=== PATIENT | female | born 1950 | race Caucasian/White ===

== ENCOUNTER → 2018-03-01 | Outpatient (CLI) | payer MEDICARE, OTHER ==
[~2018-03-01] MED LIST: GADOBUTROL 7.5 MMOL/7.5 ML (GADAVIST) VIAL IV ONE
--- NOTE | 2018-03-01 14:19 | Diagnostic Imaging Report ---
EXAM: MRI thoracic spine without and with intravenous contrast. DATE: March 01, 2018. INDICATION: 68-year-old female, history of renal malignancy with bone metastasis. COMPARISON: Thoracic spine radiograph, May 05, 2017. PET CT March 01, 2018. CT chest, December 30, 2017. CT abdomen and pelvis, November 04, 2017. TECHNIQUE: Multiple pre and post contrast MRI sequences of the thoracic spine were obtained. FINDINGS: There is an avidly enhancing T1 hypointense mass involving the T10 vertebral body which is involving the right pedicle and posterior elements. The lesion extends to at least the midline and also includes soft tissue extension of the lesion. The lesion measures approximately 4.0 x 3.5 x 4.7 cm in size. This previously measured approximately 3.3 x 2.5 x 4.0 cm in size on comparison CT abdomen and pelvis of November 04, 2017. This has increased in size over time. The lesion appears to be extending into the right side of the epidural space. There is severe spinal stenosis at this level with psurp-bx-[id number] mass effect on the spinal cord. There is no identified abnormal signal within the spinal cord. There is enhancing marrow signal within the anterior half of the superior aspect of the T11 vertebral body without CT correlate on prior CT abdomen and pelvis of November 04, 2017. This is not definitely contiguous with the mass at the level of T11, although may potentially reflect a separate metastatic lesion. There is a benign vertebral body hemangioma of the superior aspect of the T4 vertebral body. There is ill-defined soft tissue edema and enhancement posterior to the level of the T10 lesion which likely relates to procedural-related changes. There is no well-demarcated drainable fluid collection. There is no identified abnormal signal within the visualized portions of the spinal cord. There is no additional level of spinal stenosis. There is a small posterior disc osteophyte at T7-T8. IMPRESSION: 1. Avidly enhancing mass involving the T10 vertebral body and right pedicle extending into the posterior elements as well as soft tissue extension including into the right epidural space with associated severe spinal stenosis. The lesion currently measures 4.0 x 3.5 x 4.7 cm in size which is an increase in size since comparison CT abdomen and pelvis of November 04, 2017, previously measuring 3.3 x 2.5 x 4.0 cm in size. Imaging appearance would be compatible with provided history of renal malignancy metastasis. 2. Abnormal enhancement within the anterior and superior aspect of the T11 vertebral body which may relate to an additional metastatic lesion. Dictated by: Dictated on workstation # [id number]
--- NOTE | 2018-03-01 14:27 | Diagnostic Imaging Report ---
INDICATION: Metastatic renal cell carcinoma. TECHNIQUE: Serum blood glucose level at the time of injection was 112 mg/dL. Patient was administered 13 mCi F-18 FDG intravenously, administered in the right forearm, and PET imaging was performed from the top of the skull to the mid thighs. In addition, noncontrast CT was performed for attenuation correction and anatomic correlation. COMPARISON: Correlation is made with outside CT from [facility] performed on 12/30/2017 and 11/04/2017 as well as current MRI of the thoracic spine performed 03/01/2018. No prior PET studies are available for comparison. FINDINGS: There is symmetric activity within the brain. Normal physiologic activity within the soft tissues of the neck are identified. There is an intense focus of activity in the right lobe of the thyroid gland with SUV max of approximately 7.2. This does correspond to a right thyroid nodule seen on CT. Imaging through the chest does show an area of efht-qz-abzneddw hypermetabolism in the mediastinum just posterior to the level of the taty. This area demonstrates SUV max of approximately 4.4. There is some soft tissue fullness at this location on CT and does correspond to a hyperdense lesion that has been present dating back to April 2017 on outside study. Etiology is indeterminate. No other mediastinal or pulmonary parenchymal abnormalities are seen. Physiologic activity throughout the abdomen and pelvis is noted. The right kidney is surgically absent. The known lytic destructive lesion in the lower thoracic spine at approximately T10 level demonstrates only very mild uptake with SUV of approximately 3.1. Low-level activity with an associated soft tissue mass at this level posterior to the thecal sac is also seen. This would be further characterized with MRI of the thoracic spine performed the same day. No other suspicious abnormalities are detected. IMPRESSION: 1. Intense focus of hypermetabolism in the right lobe of the thyroid. Correlation with thyroid ultrasound would be recommended. 2. Nonspecific mild uptake within the mediastinum which corresponds to a hyperdense mass at this location, which has been present on the prior outside CTs and appears to be fairly stable. 3. Low-level activity within the known lytic destructive lesion in the lower thoracic spine with associated extraosseous soft tissue mass. This will be further characterized on MRI of the thoracic spine with and without contrast performed the same day. Dictated by: Dictated on workstation # [id number]
== END ==
LOC: RAD 08:51
PROVIDERS: ATTEND Internal Medicine Hematology & Oncology
DX: C79.51 Secondary malignant neoplasm of bone (principal); C78.00 Secondary malignant neoplasm of unspecified lung; M48.04 Spinal stenosis, thoracic region; Z85.528 Personal history of other malignant neoplasm of kidney
CPT/HCPCS: 72157

== ENCOUNTER 2018-03-03 13:43 | Outpatient (RCR) | payer MEDICARE, OTHER ==
[2018-02-23 15:23] LABS: BASOPHILS % (AUTO) 1 % (0-10); EOSINOPHILS # (AUTO) 0.2 10^3/uL (0.0-0.3); EOSINOPHILS % (AUTO) 6 % (0-10); HEMATOCRIT 39 % (35-52); HEMOGLOBIN 13.6 G/DL (11.5-16.0); LYMPHOCYTES # (AUTO) 1.1 X 10^3 (1.0-4.0); LYMPHOCYTES % (AUTO) 27 % (12-44); MEAN CORPUSCULAR HEMOGLOBIN 31 PG (25-34); MEAN CORPUSCULAR HGB CONC 35 G/DL (32-36); MEAN CORPUSCULAR VOLUME 90 FL (80-99); MEAN PLATELET VOLUME 10.2 FL (7.4-10.4); MONOCYTES # (AUTO) 0.4 X 10^3 (0.0-1.0); MONOCYTES % (AUTO) 10 % (0-12); NEUTROPHILS # (AUTO) 2.2 X 10^3 (1.8-7.8); NEUTROPHILS % (AUTO) 56 % (42-75); PLATELET COUNT 209 10^3/uL (130-400); RED BLOOD COUNT 4.38 10^6/uL (4.35-5.85); RED CELL DISTRIBUTION WIDTH 17.1 % (10.0-14.5)
[2018-02-23 15:45] LABS: ALBUMIN 4.3 GM/DL (3.2-4.5); BILIRUBIN,TOTAL 0.8 MG/DL (0.1-1.0); CALCIUM 9.4 MG/DL (8.5-10.1); CREATININE SERUM 1.76 MG/DL (0.60-1.30); POTASSIUM 4.1 MMOL/L (3.6-5.0); TOTAL PROTEIN 7.7 GM/DL (6.4-8.2)
== END 2018-04-19 12:26 | disposition home or self-care (01) ==
LOC: ONC 13:43
PROVIDERS: ATTEND Internal Medicine Hematology & Oncology
DX: C79.51 Secondary malignant neoplasm of bone (principal); C78.00 Secondary malignant neoplasm of unspecified lung; Z85.528 Personal history of other malignant neoplasm of kidney; N18.9 Chronic kidney disease, unspecified
CPT/HCPCS: 36415; 80053; 85025; 99213; 99214

== ENCOUNTER → 2018-05-20 | Outpatient (CLI) | payer MEDICARE, OTHER ==
[2018-05-20] MEDS: NS 250 ML (IVPB) BAG IV ONE (11:43)
[2018-05-20] MEDS: IOHEXOL 350 MG/ML 100 ML (OMNIPAQUE 350) VIAL IV ONE (11:43)
--- NOTE | 2018-05-20 12:29 | Diagnostic Imaging Report ---
PROCEDURE: CT head with and without contrast. TECHNIQUE: Multiple contiguous axial images were obtained through the brain before and after the administration of intravenous contrast. INDICATION: History of renal cell carcinoma, unsteady gait. I have no previous for comparison. Pre-and post IV contrast enhanced CT head performed. There are no foci of abnormal parenchymal or meningeal enhancement with contrast. Normal enhancement of major dural venous sinuses is preserved. No findings of focal or generalized cerebral edema. No mass or mass effect. The ventricular system is nondilated and nondisplaced. The orbits, sinuses and calvarium unremarkable. No suspicious lytic lesion. IMPRESSION: Unremarkable pre-and postcontrast enhanced CT head. Dictated by: Dictated on workstation # [id number]
--- NOTE | 2018-05-20 18:40 | Diagnostic Imaging Report ---
PROCEDURE: CT thoracic and lumbar spine with contrast. TECHNIQUE: After uneventful intrathecal administration of contrast, axial images were obtained through the thoracic and lumbar spine. INDICATION: Metastatic disease, renal cell carcinoma to bone, spinal surgery for decompression. COMPARISON: Exam correlated with a preoperative MRI performed on 03/01/2018. FINDINGS: Axial thoracolumbar CT performed with sagittal and coronal reconstructions following the administration of intravenous contrast. There is transitional anatomy with 4 lumbar-type vertebral body segments and 12 paired ribs with the 12 ribs bilaterally diminutive. This is the same level assignment when correlated with the previous MRI and given that counting, there has been interval posterior fusion with bi-pedicular screws and vertical stabilization rods placed at the T8 T9, T11, and T12 levels with wide laminectomy at T9 and T10. Extensive scalloping, lytic changes, and erosive remodeling of the T10 vertebral body showed no appreciable interval change when the differing modalities are taken into account. This process is eccentric to the right and extends through its pedicle and lamina. Adjacent radiopacities may be embolic embolization coils. No hardware fracture or evidence for hardware loosening or migration. I cannot identify a CT-appreciable enhancing soft tissue mass on followup. However, this may be on modality-sensitivity basis as extensive intraosseous and extraosseous as well as intracanalicular soft tissue enhancing mass was present on the preoperative MRI. No bony foraminal encroachment. There do appear to be some lucencies and lytic changes to the left-sided T11 vertebral body anteriorly, also correlated with a marrow enhancing lesion present at earlier MRI. The remaining thoracic as well as the lumbar levels are unremarkable aside from transitional anatomy and some SI joint arthritis. No paravertebral mass, hemorrhage, or fluid collection. The solitary left kidney is unobstructed and the adrenals bilaterally appeared unremarkable. The incompletely visualized lungs revealed no identifiable mass or thoracic effusion. IMPRESSION: Interval T10 decompressive laminectomy and multilevel thoracolumbar posterior fusion aligned anatomically without hardware complication or new bony abnormality. No identifiable enhancing soft tissue mass on followup could be identified, however MRI may reveal residual soft tissue component obscured at CT. No findings to suggest an adverse development from prior. Dictated by: Dictated on workstation # [id number]
== END ==
LOC: RAD 10:49
PROVIDERS: ATTEND Internal Medicine Hematology & Oncology
DX: C79.51 Secondary malignant neoplasm of bone (principal); C64.1 Malignant neoplasm of right kidney, except renal pelvis; R26.81 Unsteadiness on feet; Z98.1 Arthrodesis status; Z98.890 Other specified postprocedural states
CPT/HCPCS: 70470; 72129; 72132

== ENCOUNTER 2018-06-01 12:54 | Outpatient (RCR) | payer MEDICARE, OTHER ==
[2018-04-19 12:46] LABS: BASOPHILS % (AUTO) 1 % (0-10); EOSINOPHILS # (AUTO) 0.1 10^3/uL (0.0-0.3); EOSINOPHILS % (AUTO) 3 % (0-10); HEMATOCRIT 31 % (35-52); HEMOGLOBIN 10.2 G/DL (11.5-16.0); LYMPHOCYTES # (AUTO) 0.9 X 10^3 (1.0-4.0); LYMPHOCYTES % (AUTO) 21 % (12-44); MEAN CORPUSCULAR HEMOGLOBIN 32 PG (25-34); MEAN CORPUSCULAR HGB CONC 33 G/DL (32-36); MEAN CORPUSCULAR VOLUME 99 FL (80-99); MEAN PLATELET VOLUME 9.3 FL (7.4-10.4); MONOCYTES # (AUTO) 0.5 X 10^3 (0.0-1.0); MONOCYTES % (AUTO) 11 % (0-12); NEUTROPHILS # (AUTO) 2.7 X 10^3 (1.8-7.8); NEUTROPHILS % (AUTO) 64 % (42-75); PLATELET COUNT 317 10^3/uL (130-400); RED BLOOD COUNT 3.14 10^6/uL (4.35-5.85); RED CELL DISTRIBUTION WIDTH 16.2 % (10.0-14.5); WHITE BLOOD COUNT 4.3 10^3/uL (4.3-11.0)
[2018-04-19 13:06] LABS: ALBUMIN 4.3 GM/DL (3.2-4.5); BILIRUBIN,TOTAL 0.5 MG/DL (0.1-1.0); CALCIUM 9.4 MG/DL (8.5-10.1); CREATININE SERUM 1.68 MG/DL (0.60-1.30); TOTAL PROTEIN 7.4 GM/DL (6.4-8.2)
[2018-05-17 13:51] LABS: BASOPHILS # (AUTO) 0.1 10^3/uL (0.0-0.1); BASOPHILS % (AUTO) 1 % (0-10); EOSINOPHILS # (AUTO) 0.1 10^3/uL (0.0-0.3); EOSINOPHILS % (AUTO) 1 % (0-10); HEMATOCRIT 33 % (35-52); HEMOGLOBIN 11.1 G/DL (11.5-16.0); LYMPHOCYTES # (AUTO) 0.9 X 10^3 (1.0-4.0); LYMPHOCYTES % (AUTO) 20 % (12-44); MEAN CORPUSCULAR HEMOGLOBIN 33 PG (25-34); MEAN CORPUSCULAR HGB CONC 33 G/DL (32-36); MEAN CORPUSCULAR VOLUME 99 FL (80-99); MEAN PLATELET VOLUME 9.3 FL (7.4-10.4); MONOCYTES # (AUTO) 0.3 X 10^3 (0.0-1.0); MONOCYTES % (AUTO) 6 % (0-12); NEUTROPHILS # (AUTO) 3.2 X 10^3 (1.8-7.8); NEUTROPHILS % (AUTO) 72 % (42-75); PLATELET COUNT 244 10^3/uL (130-400); RED BLOOD COUNT 3.38 10^6/uL (4.35-5.85); RED CELL DISTRIBUTION WIDTH 14.2 % (10.0-14.5); WHITE BLOOD COUNT 4.4 10^3/uL (4.3-11.0)
[2018-05-17 14:09] LABS: ALBUMIN 4.4 GM/DL (3.2-4.5); BILIRUBIN,TOTAL 0.5 MG/DL (0.1-1.0); CALCIUM 9.5 MG/DL (8.5-10.1); CREATININE SERUM 1.77 MG/DL (0.60-1.30); POTASSIUM 3.9 MMOL/L (3.6-5.0); TOTAL PROTEIN 7.5 GM/DL (6.4-8.2)
[~2018-06-01] VITALS: Ht 153.7 cm; Wt 76.2 kg
[~2018-06-01 12:54] MED LIST changes: -GADOBUTROL 7.5 MMOL/7.5 ML (GADAVIST) VIAL IV ONE; +NS IV 1000 ML (CANCER CTR) 1,000 ML ONE; +NS IV 500 ML (CANCER CENTER) 0 ML ONE; +PEMBROLIZUMAB 200 MG in NS (IVPB) CANCER CENTER 50 ML IV SCH
[2018-06-01] MEDS ORDERED: NS (IVPB) CANCER CENTER 250 ML IV SCH (13:00)
[2018-06-01] MEDS ORDERED: NS IV 500 ML (CANCER CENTER) 500 ML ONE (13:50)
[2018-06-22 13:29] LABS: BASOPHILS % (AUTO) 1 % (0-10); EOSINOPHILS # (AUTO) 0.1 10^3/uL (0.0-0.3); EOSINOPHILS % (AUTO) 2 % (0-10); HEMATOCRIT 35 % (35-52); HEMOGLOBIN 11.4 G/DL (11.5-16.0); LYMPHOCYTES # (AUTO) 0.9 X 10^3 (1.0-4.0); LYMPHOCYTES % (AUTO) 22 % (12-44); MEAN CORPUSCULAR HEMOGLOBIN 32 PG (25-34); MEAN CORPUSCULAR HGB CONC 32 G/DL (32-36); MEAN CORPUSCULAR VOLUME 100 FL (80-99); MEAN PLATELET VOLUME 9.9 FL (7.4-10.4); MONOCYTES # (AUTO) 0.4 X 10^3 (0.0-1.0); MONOCYTES % (AUTO) 11 % (0-12); NEUTROPHILS # (AUTO) 2.7 X 10^3 (1.8-7.8); NEUTROPHILS % (AUTO) 65 % (42-75); PLATELET COUNT 218 10^3/uL (130-400); RED BLOOD COUNT 3.52 10^6/uL (4.35-5.85); WHITE BLOOD COUNT 4.1 10^3/uL (4.3-11.0)
[2018-06-22 13:47] LABS: ALBUMIN 4.5 GM/DL (3.2-4.5); BILIRUBIN,TOTAL 0.7 MG/DL (0.1-1.0); CALCIUM 9.8 MG/DL (8.5-10.1); CREATININE SERUM 1.33 MG/DL (0.60-1.30); POTASSIUM 4.2 MMOL/L (3.6-5.0); TOTAL PROTEIN 7.8 GM/DL (6.4-8.2)
== END 2018-06-22 13:13 | disposition home or self-care (01) ==
LOC: ONC 12:54
PROVIDERS: ATTEND Internal Medicine Hematology & Oncology
DX: C79.51 Secondary malignant neoplasm of bone (principal); C78.00 Secondary malignant neoplasm of unspecified lung; Z85.528 Personal history of other malignant neoplasm of kidney; N18.9 Chronic kidney disease, unspecified
CPT/HCPCS: 36415; 80053; 85025; 96360; 96361; 96413; 99213

== ENCOUNTER 2018-08-23 13:51 | Outpatient (RCR) | payer MEDICARE, OTHER ==
[2018-07-12 13:57] LABS: BASOPHILS % (AUTO) 1 % (0-10); EOSINOPHILS # (AUTO) 0.1 10^3/uL (0.0-0.3); EOSINOPHILS % (AUTO) 2 % (0-10); HEMATOCRIT 39 % (35-52); LYMPHOCYTES # (AUTO) 0.8 X 10^3 (1.0-4.0); LYMPHOCYTES % (AUTO) 18 % (12-44); MEAN CORPUSCULAR HEMOGLOBIN 30 PG (25-34); MEAN CORPUSCULAR HGB CONC 31 G/DL (32-36); MEAN CORPUSCULAR VOLUME 98 FL (80-99); MEAN PLATELET VOLUME 10.6 FL (7.4-10.4); MONOCYTES # (AUTO) 0.5 X 10^3 (0.0-1.0); MONOCYTES % (AUTO) 11 % (0-12); NEUTROPHILS # (AUTO) 3.1 X 10^3 (1.8-7.8); NEUTROPHILS % (AUTO) 69 % (42-75); PLATELET COUNT 208 10^3/uL (130-400); RED BLOOD COUNT 3.95 10^6/uL (4.35-5.85); RED CELL DISTRIBUTION WIDTH 12.8 % (10.0-14.5); WHITE BLOOD COUNT 4.5 10^3/uL (4.3-11.0)
[2018-07-12 14:25] LABS: ALBUMIN 4.2 GM/DL (3.2-4.5); BILIRUBIN,TOTAL 0.6 MG/DL (0.1-1.0); CALCIUM 9.6 MG/DL (8.5-10.1); CREATININE SERUM 1.03 MG/DL (0.60-1.30); POTASSIUM 4.5 MMOL/L (3.6-5.0); TOTAL PROTEIN 7.2 GM/DL (6.4-8.2)
[2018-08-02 15:20] LABS: BASOPHILS # (AUTO) 0.1 10^3/uL (0.0-0.1); BASOPHILS % (AUTO) 2 % (0-10); EOSINOPHILS # (AUTO) 0.1 10^3/uL (0.0-0.3); EOSINOPHILS % (AUTO) 3 % (0-10); HEMATOCRIT 39 % (35-52); HEMOGLOBIN 12.5 G/DL (11.5-16.0); LYMPHOCYTES % (AUTO) 27 % (12-44); MEAN CORPUSCULAR HEMOGLOBIN 30 PG (25-34); MEAN CORPUSCULAR HGB CONC 32 G/DL (32-36); MEAN CORPUSCULAR VOLUME 93 FL (80-99); MEAN PLATELET VOLUME 10.5 FL (7.4-10.4); MONOCYTES # (AUTO) 0.4 X 10^3 (0.0-1.0); MONOCYTES % (AUTO) 12 % (0-12); NEUTROPHILS # (AUTO) 2.1 X 10^3 (1.8-7.8); NEUTROPHILS % (AUTO) 57 % (42-75); PLATELET COUNT 254 10^3/uL (130-400); RED BLOOD COUNT 4.16 10^6/uL (4.35-5.85); RED CELL DISTRIBUTION WIDTH 12.3 % (10.0-14.5); WHITE BLOOD COUNT 3.7 10^3/uL (4.3-11.0)
[2018-08-02 15:35] LABS: ALBUMIN 4.2 GM/DL (3.2-4.5); BILIRUBIN,TOTAL 0.6 MG/DL (0.1-1.0); CALCIUM 9.6 MG/DL (8.5-10.1); CREATININE SERUM 1.08 MG/DL (0.60-1.30); POTASSIUM 4.3 MMOL/L (3.6-5.0); TOTAL PROTEIN 7.2 GM/DL (6.4-8.2)
[~2018-08-23] VITALS: Ht 153.7 cm; Wt 68.9 kg
[~2018-08-23 13:51] MED LIST changes: +NS (IVPB) CANCER CENTER 250 ML IV SCH; -NS IV 1000 ML (CANCER CTR) 1,000 ML ONE; -NS IV 500 ML (CANCER CENTER) 0 ML ONE; +NS IV 500 ML (CANCER CENTER) 500 ML ONE
[2018-08-23 14:30] LABS: BASOPHILS # (AUTO) 0.1 10^3/uL (0.0-0.1); BASOPHILS % (AUTO) 1 % (0-10); EOSINOPHILS # (AUTO) 0.1 10^3/uL (0.0-0.3); EOSINOPHILS % (AUTO) 2 % (0-10); HEMATOCRIT 39 % (35-52); HEMOGLOBIN 12.8 G/DL (11.5-16.0); LYMPHOCYTES # (AUTO) 1.1 X 10^3 (1.0-4.0); LYMPHOCYTES % (AUTO) 20 % (12-44); MEAN CORPUSCULAR HEMOGLOBIN 30 PG (25-34); MEAN CORPUSCULAR HGB CONC 33 G/DL (32-36); MEAN CORPUSCULAR VOLUME 91 FL (80-99); MONOCYTES # (AUTO) 0.6 X 10^3 (0.0-1.0); MONOCYTES % (AUTO) 11 % (0-12); NEUTROPHILS # (AUTO) 3.5 X 10^3 (1.8-7.8); NEUTROPHILS % (AUTO) 66 % (42-75); PLATELET COUNT 256 10^3/uL (130-400); RED BLOOD COUNT 4.33 10^6/uL (4.35-5.85); RED CELL DISTRIBUTION WIDTH 12.3 % (10.0-14.5); WHITE BLOOD COUNT 5.3 10^3/uL (4.3-11.0)
[2018-08-23 14:52] LABS: ALBUMIN 4.2 GM/DL (3.2-4.5); BILIRUBIN,TOTAL 0.5 MG/DL (0.1-1.0); CALCIUM 9.8 MG/DL (8.5-10.1); CREATININE SERUM 0.96 MG/DL (0.60-1.30); POTASSIUM 4.3 MMOL/L (3.6-5.0); TOTAL PROTEIN 7.4 GM/DL (6.4-8.2)
== END 2018-09-20 | disposition home or self-care (01) ==
LOC: ONC 13:51
PROVIDERS: ATTEND Internal Medicine Hematology & Oncology
DX: Z51.11 Encounter for antineoplastic chemotherapy (principal); C79.51 Secondary malignant neoplasm of bone; C64.1 Malignant neoplasm of right kidney, except renal pelvis; R26.81 Unsteadiness on feet; Z98.1 Arthrodesis status; Z98.890 Other specified postprocedural states; Z79.899 Other long term (current) drug therapy
CPT/HCPCS: 36415; 80053; 84443; 85025; 96413

== ENCOUNTER → 2018-10-13 | Outpatient (CLI) | payer MEDICARE, OTHER ==
[~2018-10-13] MED LIST changes: +IOHEXOL 350 MG/ML 100 ML (OMNIPAQUE 350) VIAL IV ONE; -NS (IVPB) CANCER CENTER 250 ML IV SCH; +NS 100 ML (IVPB) BAG IV ONE; -NS IV 500 ML (CANCER CENTER) 500 ML ONE; -PEMBROLIZUMAB 200 MG in NS (IVPB) CANCER CENTER 50 ML IV SCH; +RECEIVED CONTRAST (Hold Metformin) IV SCH
--- NOTE | 2018-10-13 11:00 | Diagnostic Imaging Report ---
PROCEDURE: CT thoracic and lumbar spine with contrast. TECHNIQUE: After uneventful intrathecal administration of contrast, axial images were obtained through the thoracic and lumbar spine. INDICATION: Renal cell carcinoma. COMPARISON: Correlation is made with prior CT from 05/20/2018. FINDINGS: Transitional vertebrae with four lumbar-type vertebral bodies are again seen. There are 12 paired ribs with the T12 ribs again being diminutive. Again noted is posterior instrumentation with bi-pedicular screws at the T8, T9, T11, and T12 levels. The hardware does appear to be intact. No definite fracture or loosening or migration of the hardware is seen. Decompression laminectomy at the T9 and T10 levels. There has been some loss of height involving the T12 vertebral body when compared with prior CT. This is anteriorly and centrally. There is some sclerosis of the superior endplate. This is consistent with a compression fracture, new since exam from April 2018 however acuity is indeterminate. Lytic changes with scalloping and bony remodeling of the T10 vertebral body eccentric to the right appears similar to prior exam. Minimal cystic changes along the T11 vertebral body are not as well seen. Lumbar vertebrae appear stable. Lucency in the left iliac bone appears stable with prior study. Paraspinous tissues are unremarkable. No definite abnormal enhancement is seen by CT, however, CT is limited in evaluation for enhancement of the spine. MRI would be more sensitive. Mid and upper thoracic spine appear stable. IMPRESSION: Postop changes of decompression laminectomy at T9-T10 with posterior instrumented fusion of T8 through T12. Lytic lesion involving the T10 vertebral body is stable. There has been interval development of a compression fracture involving the superior endplate of T12 when compared with prior imaging from April 2018. Acuity of this is indeterminate. The remainder of the study appears stable. Dictated by: Dictated on workstation # [id number]
--- NOTE | 2018-10-13 11:29 | Diagnostic Imaging Report ---
PROCEDURE: CT pelvis with contrast. TECHNIQUE: Oral and intravenous contrast were administered with pelvic CT performed. INDICATION: Renal cell carcinoma. Patient complains of left hip pain. Correlation is made with outside CT from 11/04/2017. FINDINGS: Bowel loops in the pelvis are nondilated. No definite iliac or inguinal lymphadenopathy is seen. Bladder is unremarkable. There is no free fluid in the pelvis. Lucency involving the left iliac bone appear stable to approximately 14 mm. Both hips show normal femoral acetabular alignment. No fracture or bony lesion is seen. IMPRESSION: Stable CT of the pelvis when compared with outside study from 11/04/2017. Dictated by: Dictated on workstation # [id number]
== END ==
LOC: RAD 09:49
PROVIDERS: ATTEND Internal Medicine Hematology & Oncology
DX: C64.9 Malignant neoplasm of unspecified kidney, except renal pelvis (principal); C79.51 Secondary malignant neoplasm of bone; S22.080A Wedge compression fracture of T11-T12 vertebra, initial encounter for closed fracture; M89.9 Disorder of bone, unspecified; Z98.1 Arthrodesis status
CPT/HCPCS: 72129; 72132; 72193

== ENCOUNTER 2018-12-20 13:59 | Outpatient (RCR) | payer MEDICARE, OTHER ==
[2018-09-27 14:23] LABS: BASOPHILS % (AUTO) 1 % (0-10); EOSINOPHILS # (AUTO) 0.1 10^3/uL (0.0-0.3); EOSINOPHILS % (AUTO) 2 % (0-10); HEMATOCRIT 40 % (35-52); HEMOGLOBIN 13.1 G/DL (11.5-16.0); LYMPHOCYTES # (AUTO) 1.1 X 10^3 (1.0-4.0); LYMPHOCYTES % (AUTO) 23 % (12-44); MEAN CORPUSCULAR HEMOGLOBIN 29 PG (25-34); MEAN CORPUSCULAR HGB CONC 33 G/DL (32-36); MEAN CORPUSCULAR VOLUME 88 FL (80-99); MEAN PLATELET VOLUME 10.4 FL (7.4-10.4); MONOCYTES # (AUTO) 0.5 X 10^3 (0.0-1.0); MONOCYTES % (AUTO) 11 % (0-12); NEUTROPHILS # (AUTO) 3.1 X 10^3 (1.8-7.8); NEUTROPHILS % (AUTO) 64 % (42-75); PLATELET COUNT 256 10^3/uL (130-400); RED CELL DISTRIBUTION WIDTH 13.3 % (10.0-14.5); WHITE BLOOD COUNT 4.9 10^3/uL (4.3-11.0)
[2018-09-27 14:41] LABS: ALBUMIN 4.2 GM/DL (3.2-4.5); BILIRUBIN,TOTAL 0.5 MG/DL (0.1-1.0); CALCIUM 9.1 MG/DL (8.5-10.1); CREATININE SERUM 1.13 MG/DL (0.60-1.30); POTASSIUM 4.4 MMOL/L (3.6-5.0); TOTAL PROTEIN 7.3 GM/DL (6.4-8.2)
[2018-10-18 14:38] LABS: BASOPHILS % (AUTO) 1 % (0-10); EOSINOPHILS # (AUTO) 0.1 10^3/uL (0.0-0.3); EOSINOPHILS % (AUTO) 3 % (0-10); HEMATOCRIT 40 % (35-52); HEMOGLOBIN 13.1 G/DL (11.5-16.0); LYMPHOCYTES # (AUTO) 1.2 X 10^3 (1.0-4.0); LYMPHOCYTES % (AUTO) 25 % (12-44); MEAN CORPUSCULAR HEMOGLOBIN 28 PG (25-34); MEAN CORPUSCULAR HGB CONC 33 G/DL (32-36); MEAN CORPUSCULAR VOLUME 87 FL (80-99); MEAN PLATELET VOLUME 9.9 FL (7.4-10.4); MONOCYTES # (AUTO) 0.5 X 10^3 (0.0-1.0); MONOCYTES % (AUTO) 11 % (0-12); NEUTROPHILS % (AUTO) 62 % (42-75); PLATELET COUNT 224 10^3/uL (130-400); RED CELL DISTRIBUTION WIDTH 13.7 % (10.0-14.5); WHITE BLOOD COUNT 4.9 10^3/uL (4.3-11.0)
[2018-10-18 14:56] LABS: ALBUMIN 4.1 GM/DL (3.2-4.5); BILIRUBIN,TOTAL 0.6 MG/DL (0.1-1.0); CALCIUM 9.3 MG/DL (8.5-10.1); POTASSIUM 4.2 MMOL/L (3.6-5.0); TOTAL PROTEIN 7.1 GM/DL (6.4-8.2)
[2018-11-08 13:23] LABS: BASOPHILS # (AUTO) 0.1 10^3/uL (0.0-0.1); BASOPHILS % (AUTO) 1 % (0-10); EOSINOPHILS # (AUTO) 0.1 10^3/uL (0.0-0.3); EOSINOPHILS % (AUTO) 3 % (0-10); HEMATOCRIT 39 % (35-52); HEMOGLOBIN 13.2 G/DL (11.5-16.0); LYMPHOCYTES # (AUTO) 1.1 X 10^3 (1.0-4.0); LYMPHOCYTES % (AUTO) 32 % (12-44); MEAN CORPUSCULAR HEMOGLOBIN 29 PG (25-34); MEAN CORPUSCULAR HGB CONC 34 G/DL (32-36); MEAN CORPUSCULAR VOLUME 87 FL (80-99); MEAN PLATELET VOLUME 9.9 FL (7.4-10.4); MONOCYTES # (AUTO) 0.4 X 10^3 (0.0-1.0); MONOCYTES % (AUTO) 11 % (0-12); NEUTROPHILS # (AUTO) 1.9 X 10^3 (1.8-7.8); NEUTROPHILS % (AUTO) 54 % (42-75); PLATELET COUNT 242 10^3/uL (130-400); RED CELL DISTRIBUTION WIDTH 14.9 % (10.0-14.5); WHITE BLOOD COUNT 3.6 10^3/uL (4.3-11.0)
[2018-11-08 13:39] LABS: ALBUMIN 4.3 GM/DL (3.2-4.5); BILIRUBIN,TOTAL 0.3 MG/DL (0.1-1.0); CALCIUM 9.1 MG/DL (8.5-10.1); CREATININE SERUM 1.07 MG/DL (0.60-1.30); TOTAL PROTEIN 8.2 GM/DL (6.4-8.2)
[2018-11-29 15:18] LABS: BASOPHILS % (AUTO) 1 % (0-10); EOSINOPHILS # (AUTO) 0.1 10^3/uL (0.0-0.3); EOSINOPHILS % (AUTO) 3 % (0-10); HEMATOCRIT 40 % (35-52); HEMOGLOBIN 12.9 G/DL (11.5-16.0); LYMPHOCYTES # (AUTO) 1.2 X 10^3 (1.0-4.0); LYMPHOCYTES % (AUTO) 24 % (12-44); MEAN CORPUSCULAR HEMOGLOBIN 29 PG (25-34); MEAN CORPUSCULAR HGB CONC 33 G/DL (32-36); MEAN CORPUSCULAR VOLUME 88 FL (80-99); MEAN PLATELET VOLUME 10.2 FL (7.4-10.4); MONOCYTES # (AUTO) 0.5 X 10^3 (0.0-1.0); MONOCYTES % (AUTO) 11 % (0-12); NEUTROPHILS % (AUTO) 62 % (42-75); PLATELET COUNT 224 10^3/uL (130-400); RED CELL DISTRIBUTION WIDTH 14.9 % (10.0-14.5); WHITE BLOOD COUNT 4.8 10^3/uL (4.3-11.0)
[2018-11-29 15:40] LABS: BILIRUBIN,TOTAL 0.5 MG/DL (0.1-1.0); CALCIUM 8.7 MG/DL (8.5-10.1); CREATININE SERUM 1.24 MG/DL (0.60-1.30); POTASSIUM 4.8 MMOL/L (3.6-5.0); TOTAL PROTEIN 7.2 GM/DL (6.4-8.2)
[~2018-12-20] VITALS: Ht 153.7 cm; Wt 76.2 kg
[~2018-12-20 13:59] MED LIST changes: -IOHEXOL 350 MG/ML 100 ML (OMNIPAQUE 350) VIAL IV ONE; +NS (IVPB) CANCER CENTER 250 ML IV SCH; -NS 100 ML (IVPB) BAG IV ONE; +PEMBROLIZUMAB 200 MG in NS (IVPB) CANCER CENTER 50 ML IV SCH; -RECEIVED CONTRAST (Hold Metformin) IV SCH; +ZOLEDRONIC ACID (CANCER CTR) 4 MG in NS (IVPB) CANCER CENTER 100 ML IV SCH
== END 2018-12-26 | disposition home or self-care (01) ==
LOC: ONC 13:59
PROVIDERS: ATTEND Internal Medicine Hematology & Oncology
DX: Z51.11 Encounter for antineoplastic chemotherapy (principal); C64.1 Malignant neoplasm of right kidney, except renal pelvis; C79.51 Secondary malignant neoplasm of bone; R26.81 Unsteadiness on feet; Z98.1 Arthrodesis status; Z98.890 Other specified postprocedural states; Z79.899 Other long term (current) drug therapy
CPT/HCPCS: 36415; 80053; 84443; 85025; 96367; 96413

== ENCOUNTER 2019-04-04 13:10 | Outpatient (RCR) | payer MEDICARE, OTHER ==
[2019-01-10 13:55] LABS: BASOPHILS # (AUTO) 0.1 10^3/uL (0.0-0.1); BASOPHILS % (AUTO) 1 % (0-10); EOSINOPHILS # (AUTO) 0.1 10^3/uL (0.0-0.3); EOSINOPHILS % (AUTO) 3 % (0-10); HEMATOCRIT 41 % (35-52); HEMOGLOBIN 13.6 G/DL (11.5-16.0); LYMPHOCYTES # (AUTO) 1.2 X 10^3 (1.0-4.0); LYMPHOCYTES % (AUTO) 27 % (12-44); MEAN CORPUSCULAR HEMOGLOBIN 30 PG (25-34); MEAN CORPUSCULAR HGB CONC 33 G/DL (32-36); MEAN CORPUSCULAR VOLUME 88 FL (80-99); MEAN PLATELET VOLUME 9.9 FL (7.4-10.4); MONOCYTES # (AUTO) 0.6 X 10^3 (0.0-1.0); MONOCYTES % (AUTO) 13 % (0-12); NEUTROPHILS # (AUTO) 2.6 X 10^3 (1.8-7.8); NEUTROPHILS % (AUTO) 56 % (42-75); PLATELET COUNT 226 10^3/uL (130-400); RED CELL DISTRIBUTION WIDTH 13.8 % (10.0-14.5); WHITE BLOOD COUNT 4.5 10^3/uL (4.3-11.0)
[2019-01-10 14:13] LABS: ALBUMIN 4.1 GM/DL (3.2-4.5); BILIRUBIN,TOTAL 0.5 MG/DL (0.1-1.0); CALCIUM 9.2 MG/DL (8.5-10.1); CREATININE SERUM 0.95 MG/DL (0.60-1.30); POTASSIUM 4.5 MMOL/L (3.6-5.0); TOTAL PROTEIN 7.4 GM/DL (6.4-8.2)
[2019-02-21 14:21] LABS: BASOPHILS % (AUTO) 1 % (0-10); EOSINOPHILS # (AUTO) 0.1 10^3/uL (0.0-0.3); EOSINOPHILS % (AUTO) 3 % (0-10); HEMATOCRIT 41 % (35-52); HEMOGLOBIN 13.6 G/DL (11.5-16.0); LYMPHOCYTES # (AUTO) 1.3 X 10^3 (1.0-4.0); LYMPHOCYTES % (AUTO) 27 % (12-44); MEAN CORPUSCULAR HEMOGLOBIN 29 PG (25-34); MEAN CORPUSCULAR HGB CONC 33 G/DL (32-36); MEAN CORPUSCULAR VOLUME 88 FL (80-99); MEAN PLATELET VOLUME 10.1 FL (7.4-10.4); MONOCYTES # (AUTO) 0.5 X 10^3 (0.0-1.0); MONOCYTES % (AUTO) 11 % (0-12); NEUTROPHILS # (AUTO) 2.7 X 10^3 (1.8-7.8); NEUTROPHILS % (AUTO) 59 % (42-75); PLATELET COUNT 251 10^3/uL (130-400); RED CELL DISTRIBUTION WIDTH 13.9 % (10.0-14.5); WHITE BLOOD COUNT 4.7 10^3/uL (4.3-11.0)
[2019-02-21 14:43] LABS: ALBUMIN 4.1 GM/DL (3.2-4.5); BILIRUBIN,TOTAL 0.4 MG/DL (0.1-1.0); CALCIUM 9.3 MG/DL (8.5-10.1); CREATININE SERUM 0.95 MG/DL (0.60-1.30)
[2019-02-21 14:47] LABS: POTASSIUM 5.3 MMOL/L (3.6-5.0)
[~2019-04-04] VITALS: Ht 153.7 cm; Wt 78.9 kg
[2019-04-04 13:32] LABS: BASOPHILS % (AUTO) 1 % (0-10); EOSINOPHILS # (AUTO) 0.1 10^3/uL (0.0-0.3); EOSINOPHILS % (AUTO) 3 % (0-10); HEMATOCRIT 40 % (35-52); HEMOGLOBIN 13.3 G/DL (11.5-16.0); LYMPHOCYTES # (AUTO) 1.3 X 10^3 (1.0-4.0); LYMPHOCYTES % (AUTO) 33 % (12-44); MEAN CORPUSCULAR HEMOGLOBIN 29 PG (25-34); MEAN CORPUSCULAR HGB CONC 33 G/DL (32-36); MEAN CORPUSCULAR VOLUME 89 FL (80-99); MEAN PLATELET VOLUME 9.8 FL (7.4-10.4); MONOCYTES # (AUTO) 0.6 X 10^3 (0.0-1.0); MONOCYTES % (AUTO) 14 % (0-12); NEUTROPHILS # (AUTO) 1.9 X 10^3 (1.8-7.8); NEUTROPHILS % (AUTO) 50 % (42-75); PLATELET COUNT 236 10^3/uL (130-400); RED CELL DISTRIBUTION WIDTH 14.1 % (10.0-14.5); WHITE BLOOD COUNT 3.9 10^3/uL (4.3-11.0)
[2019-04-04 13:53] LABS: ALBUMIN 4.2 GM/DL (3.2-4.5); BILIRUBIN,TOTAL 0.4 MG/DL (0.1-1.0); CALCIUM 8.9 MG/DL (8.5-10.1); CREATININE SERUM 1.06 MG/DL (0.60-1.30); POTASSIUM 4.3 MMOL/L (3.6-5.0); TOTAL PROTEIN 7.3 GM/DL (6.4-8.2)
== END 2019-04-10 | disposition home or self-care (01) ==
LOC: ONC 13:10
PROVIDERS: ATTEND Internal Medicine Hematology & Oncology
DX: Z51.11 Encounter for antineoplastic chemotherapy (principal); C64.1 Malignant neoplasm of right kidney, except renal pelvis; C79.51 Secondary malignant neoplasm of bone; R26.81 Unsteadiness on feet; Z98.1 Arthrodesis status; Z98.890 Other specified postprocedural states; Z79.899 Other long term (current) drug therapy
CPT/HCPCS: 36415; 80053; 84443; 85025; 96367; 96413

== ENCOUNTER 2019-06-27 12:59 | Outpatient (RCR) | payer MEDICARE, OTHER ==
[2019-05-16 13:51] LABS: BASOPHILS # (AUTO) 0.1 10^3/uL (0.0-0.1); BASOPHILS % (AUTO) 2 % (0-10); EOSINOPHILS # (AUTO) 0.1 10^3/uL (0.0-0.3); EOSINOPHILS % (AUTO) 3 % (0-10); HEMATOCRIT 42 % (35-52); HEMOGLOBIN 13.8 G/DL (11.5-16.0); LYMPHOCYTES # (AUTO) 1.4 X 10^3 (1.0-4.0); LYMPHOCYTES % (AUTO) 30 % (12-44); MEAN CORPUSCULAR HEMOGLOBIN 29 PG (25-34); MEAN CORPUSCULAR HGB CONC 33 G/DL (32-36); MEAN CORPUSCULAR VOLUME 90 FL (80-99); MEAN PLATELET VOLUME 9.8 FL (7.4-10.4); MONOCYTES # (AUTO) 0.5 X 10^3 (0.0-1.0); MONOCYTES % (AUTO) 10 % (0-12); NEUTROPHILS # (AUTO) 2.5 X 10^3 (1.8-7.8); NEUTROPHILS % (AUTO) 55 % (42-75); PLATELET COUNT 250 10^3/uL (130-400); RED CELL DISTRIBUTION WIDTH 14.5 % (10.0-14.5); WHITE BLOOD COUNT 4.5 10^3/uL (4.3-11.0)
[2019-05-16 14:11] LABS: ALBUMIN 4.4 GM/DL (3.2-4.5); BILIRUBIN,TOTAL 0.5 MG/DL (0.1-1.0); CALCIUM 9.3 MG/DL (8.5-10.1); CREATININE SERUM 1.08 MG/DL (0.60-1.30); POTASSIUM 4.3 MMOL/L (3.6-5.0); TOTAL PROTEIN 7.9 GM/DL (6.4-8.2)
[2019-06-27 13:30] LABS: BASOPHILS # (AUTO) 0.1 10^3/uL (0.0-0.1); BASOPHILS % (AUTO) 1 % (0-10); EOSINOPHILS # (AUTO) 0.1 10^3/uL (0.0-0.3); EOSINOPHILS % (AUTO) 2 % (0-10); HEMATOCRIT 40 % (35-52); HEMOGLOBIN 12.6 G/DL (11.5-16.0); LYMPHOCYTES # (AUTO) 1.2 X 10^3 (1.0-4.0); LYMPHOCYTES % (AUTO) 25 % (12-44); MEAN CORPUSCULAR HEMOGLOBIN 29 PG (25-34); MEAN CORPUSCULAR HGB CONC 32 G/DL (32-36); MEAN CORPUSCULAR VOLUME 92 FL (80-99); MEAN PLATELET VOLUME 9.9 FL (7.4-10.4); MONOCYTES # (AUTO) 0.5 X 10^3 (0.0-1.0); MONOCYTES % (AUTO) 11 % (0-12); NEUTROPHILS # (AUTO) 3.1 X 10^3 (1.8-7.8); NEUTROPHILS % (AUTO) 62 % (42-75); PLATELET COUNT 270 10^3/uL (130-400); RED CELL DISTRIBUTION WIDTH 14.2 % (10.0-14.5)
[2019-06-27 13:54] LABS: ALBUMIN 3.9 GM/DL (3.2-4.5); BILIRUBIN,TOTAL 0.5 MG/DL (0.1-1.0); CALCIUM 8.8 MG/DL (8.5-10.1); CREATININE SERUM 1.1 MG/DL (0.60-1.30); POTASSIUM 3.9 MMOL/L (3.6-5.0)
== END 2019-07-24 | disposition home or self-care (01) ==
LOC: ONC 12:59
PROVIDERS: ATTEND Internal Medicine Hematology & Oncology
DX: Z51.11 Encounter for antineoplastic chemotherapy (principal); C64.1 Malignant neoplasm of right kidney, except renal pelvis; C79.51 Secondary malignant neoplasm of bone; R26.81 Unsteadiness on feet; Z98.1 Arthrodesis status; Z98.890 Other specified postprocedural states; Z79.899 Other long term (current) drug therapy
CPT/HCPCS: 36415; 80053; 84443; 85025; 96413

== ENCOUNTER 2019-10-31 13:07 | Outpatient (RCR) | payer MEDICARE, OTHER ==
[2019-08-08 13:12] LABS: BASOPHILS # (AUTO) 0.1 10^3/uL (0.0-0.1); BASOPHILS % (AUTO) 2 % (0-10); EOSINOPHILS # (AUTO) 0.2 10^3/uL (0.0-0.3); EOSINOPHILS % (AUTO) 4 % (0-10); HEMATOCRIT 40 % (35-52); HEMOGLOBIN 12.8 G/DL (11.5-16.0); LYMPHOCYTES # (AUTO) 1.2 X 10^3 (1.0-4.0); LYMPHOCYTES % (AUTO) 29 % (12-44); MEAN CORPUSCULAR HEMOGLOBIN 30 PG (25-34); MEAN CORPUSCULAR HGB CONC 32 G/DL (32-36); MEAN CORPUSCULAR VOLUME 92 FL (80-99); MONOCYTES # (AUTO) 0.4 X 10^3 (0.0-1.0); MONOCYTES % (AUTO) 9 % (0-12); NEUTROPHILS # (AUTO) 2.4 X 10^3 (1.8-7.8); NEUTROPHILS % (AUTO) 57 % (42-75); PLATELET COUNT 271 10^3/uL (130-400); RED CELL DISTRIBUTION WIDTH 12.1 % (10.0-14.5); WHITE BLOOD COUNT 4.1 10^3/uL (4.3-11.0)
[2019-08-08 13:31] LABS: ALBUMIN 4.1 GM/DL (3.2-4.5); BILIRUBIN,TOTAL 0.4 MG/DL (0.1-1.0); CALCIUM 9.2 MG/DL (8.5-10.1); CREATININE SERUM 1.07 MG/DL (0.60-1.30); TOTAL PROTEIN 7.4 GM/DL (6.4-8.2)
[2019-09-19 13:43] LABS: BASOPHILS # (AUTO) 0.1 10^3/uL (0.0-0.1); BASOPHILS % (AUTO) 1 % (0-10); EOSINOPHILS # (AUTO) 0.1 10^3/uL (0.0-0.3); EOSINOPHILS % (AUTO) 3 % (0-10); HEMATOCRIT 40 % (35-52); HEMOGLOBIN 13.1 G/DL (11.5-16.0); LYMPHOCYTES # (AUTO) 1.3 X 10^3 (1.0-4.0); LYMPHOCYTES % (AUTO) 26 % (12-44); MEAN CORPUSCULAR HEMOGLOBIN 29 PG (25-34); MEAN CORPUSCULAR HGB CONC 33 G/DL (32-36); MEAN CORPUSCULAR VOLUME 90 FL (80-99); MONOCYTES # (AUTO) 0.5 X 10^3 (0.0-1.0); MONOCYTES % (AUTO) 10 % (0-12); NEUTROPHILS % (AUTO) 60 % (42-75); PLATELET COUNT 233 10^3/uL (130-400); RED CELL DISTRIBUTION WIDTH 12.8 % (10.0-14.5)
[2019-09-19 14:03] LABS: ALBUMIN 4.3 GM/DL (3.2-4.5); BILIRUBIN,TOTAL 0.5 MG/DL (0.1-1.0); CALCIUM 9.1 MG/DL (8.5-10.1); CREATININE SERUM 1.15 MG/DL (0.60-1.30); POTASSIUM 4.3 MMOL/L (3.6-5.0); TOTAL PROTEIN 7.2 GM/DL (6.4-8.2)
[~2019-10-31 13:07] MED LIST changes: +NS IV 500 ML (CANCER CENTER) 500 ML ONE
[2019-10-31 13:25] LABS: BASOPHILS # (AUTO) 0.1 10^3/uL (0.0-0.1); BASOPHILS % (AUTO) 1 % (0-10); EOSINOPHILS # (AUTO) 0.1 10^3/uL (0.0-0.3); EOSINOPHILS % (AUTO) 3 % (0-10); HEMATOCRIT 42 % (35-52); HEMOGLOBIN 13.6 G/DL (11.5-16.0); LYMPHOCYTES # (AUTO) 1.4 X 10^3 (1.0-4.0); LYMPHOCYTES % (AUTO) 31 % (12-44); MEAN CORPUSCULAR HEMOGLOBIN 29 PG (25-34); MEAN CORPUSCULAR HGB CONC 33 G/DL (32-36); MEAN CORPUSCULAR VOLUME 89 FL (80-99); MONOCYTES # (AUTO) 0.4 X 10^3 (0.0-1.0); MONOCYTES % (AUTO) 10 % (0-12); NEUTROPHILS # (AUTO) 2.5 X 10^3 (1.8-7.8); NEUTROPHILS % (AUTO) 55 % (42-75); PLATELET COUNT 227 10^3/uL (130-400); RED CELL DISTRIBUTION WIDTH 13.7 % (10.0-14.5); WHITE BLOOD COUNT 4.5 10^3/uL (4.3-11.0)
[2019-10-31 13:48] LABS: ALBUMIN 4.2 GM/DL (3.2-4.5); BILIRUBIN,TOTAL 0.5 MG/DL (0.1-1.0); CALCIUM 9.4 MG/DL (8.5-10.1); CREATININE SERUM 1.13 MG/DL (0.60-1.30); POTASSIUM 4.2 MMOL/L (3.6-5.0); TOTAL PROTEIN 7.5 GM/DL (6.4-8.2)
== END 2019-11-06 | disposition home or self-care (01) ==
LOC: ONC 13:07
PROVIDERS: ATTEND Internal Medicine Hematology & Oncology
DX: Z51.11 Encounter for antineoplastic chemotherapy (principal); C64.1 Malignant neoplasm of right kidney, except renal pelvis; C79.51 Secondary malignant neoplasm of bone; E03.4 Atrophy of thyroid (acquired); N18.9 Chronic kidney disease, unspecified; G62.9 Polyneuropathy, unspecified; M48.54XA Collapsed vertebra, not elsewhere classified, thoracic region, initial encounter for fracture; Z98.1 Arthrodesis status; Z79.899 Other long term (current) drug therapy; Z98.890 Other specified postprocedural states
CPT/HCPCS: 36415; 80053; 84443; 85025; 96413

== ENCOUNTER 2020-02-13 14:27 | Outpatient (RCR) | payer MEDICARE, OTHER ==
[2019-12-12 13:11] LABS: WHITE BLOOD COUNT 4.4 10^3/uL (4.3-11.0)
[2019-12-12 13:12] LABS: BASOPHILS # (AUTO) 0.1 10^3/uL (0.0-0.1); BASOPHILS % (AUTO) 2 % (0-10); EOSINOPHILS # (AUTO) 0.2 10^3/uL (0.0-0.3); EOSINOPHILS % (AUTO) 5 % (0-10); HEMATOCRIT 41 % (35-52); HEMOGLOBIN 13.3 G/DL (11.5-16.0); LYMPHOCYTES # (AUTO) 1.4 X 10^3 (1.0-4.0); LYMPHOCYTES % (AUTO) 32 % (12-44); MEAN CORPUSCULAR HEMOGLOBIN 29 PG (25-34); MEAN CORPUSCULAR HGB CONC 33 G/DL (32-36); MEAN CORPUSCULAR VOLUME 89 FL (80-99); MEAN PLATELET VOLUME 10.2 FL (7.4-10.4); MONOCYTES # (AUTO) 0.4 X 10^3 (0.0-1.0); MONOCYTES % (AUTO) 10 % (0-12); NEUTROPHILS # (AUTO) 2.3 X 10^3 (1.8-7.8); NEUTROPHILS % (AUTO) 53 % (42-75); PLATELET COUNT 212 10^3/uL (130-400); RED CELL DISTRIBUTION WIDTH 14.3 % (10.0-14.5)
[2019-12-12 13:36] LABS: BILIRUBIN,TOTAL 0.5 MG/DL (0.1-1.0); CALCIUM 8.8 MG/DL (8.5-10.1); CREATININE SERUM 1.13 MG/DL (0.60-1.30); POTASSIUM 4.2 MMOL/L (3.6-5.0); TOTAL PROTEIN 7.3 GM/DL (6.4-8.2)
[2020-01-23 13:25] LABS: BASOPHILS # (AUTO) 0.1 10^3/uL (0.0-0.1); BASOPHILS % (AUTO) 1 % (0-10); EOSINOPHILS # (AUTO) 0.2 10^3/uL (0.0-0.3); EOSINOPHILS % (AUTO) 2 % (0-10); HEMATOCRIT 42 % (35-52); HEMOGLOBIN 13.5 G/DL (11.5-16.0); LYMPHOCYTES # (AUTO) 2.2 X 10^3 (1.0-4.0); LYMPHOCYTES % (AUTO) 24 % (12-44); MEAN CORPUSCULAR HEMOGLOBIN 30 PG (25-34); MEAN CORPUSCULAR HGB CONC 32 G/DL (32-36); MEAN CORPUSCULAR VOLUME 92 FL (80-99); MEAN PLATELET VOLUME 10.3 FL (7.4-10.4); MONOCYTES % (AUTO) 11 % (0-12); NEUTROPHILS # (AUTO) 5.7 X 10^3 (1.8-7.8); NEUTROPHILS % (AUTO) 63 % (42-75); PLATELET COUNT 257 10^3/uL (130-400); RED CELL DISTRIBUTION WIDTH 13.6 % (10.0-14.5); WHITE BLOOD COUNT 9.1 10^3/uL (4.3-11.0)
[2020-01-23 13:46] LABS: ALBUMIN 3.8 GM/DL (3.2-4.5); BILIRUBIN,TOTAL 0.4 MG/DL (0.1-1.0); CALCIUM 8.2 MG/DL (8.5-10.1); CREATININE SERUM 1.29 MG/DL (0.60-1.30); POTASSIUM 4.1 MMOL/L (3.6-5.0); TOTAL PROTEIN 6.8 GM/DL (6.4-8.2)
[~2020-02-13 14:27] MED LIST changes: +ACETAMINOPHEN 325 MG TAB (TYLENOL) CANCER CTR PO PRN; +ACETAMINOPHEN 500 MG TAB (TYLENOL) CANCER CTR PO PRN; +ATROPINE INJ 0.4 MG/ML SDV (CANCER CENTER) INJ SCH; +CALCIUM GLUCONATE IV SCH; +D5W 500 ML IV (CANCER CTR) 500 ML IV SCH; +DEXAMETHASONE INJECTION 10 MG in NS (IVPB) CANCER CENTER 50 ML IV SCH; +DEXAMETHASONE IV SCH; +DEXTROSE IV SCH; +FAMOTIDINE 20MG/2ML IV (CANCER CTR) IV SCH; +FOSAPREPITANT DIMEGLUMINE 150 MG in NS (IVPB) CANCER CENTER ONLY 150 ML IV SCH; +LORazepam 0.5 MG (ATIVAN) TABLET CANCER CTR PO PRN; +LORazepam INJ 2 MG/ML VIAL CANCER CTR IV SCH; +MAGNESIUM SULFATE 1 GM IV SCH; +METOCLOPRAMIDE 10 MG/2 ML IV SCH; +NS IV 1000 ML (CANCER CTR) IV SCH; -NS IV 500 ML (CANCER CENTER) 500 ML ONE; +NS IV 500 ML (CANCER CENTER) IV SCH; +ONDANSETRON 8 MG, DEXAMETHASONE 4 MG/NS 50 ML IVPB (Cancer Ctr) IV SCH; +ONDANSETRON IV SCH; +ONDANSETRON MDV (CANCER CENTER 16 MG, DEXAMETHASONE INJECTION 10 MG in NS (IVPB) CANCER... IV SCH; +PALONOSETRON HCL 0.25 MG, DEXAMETHASONE INJECTION 10 MG in NS (IVPB) CANCER CENTER 50 ML IV SCH; +PALONOSETRON HCL 0.25 MG/5 ML IV SCH; +PROCHLORPERAZINE 10 MG PO SCH; +RANITIDINE IV SCH; +SODIUM CHLORIDE IV SCH; +[UNRECOGNIZED DRUG - OTHER] IV SCH; +[UNRECOGNIZED DRUG - OTHER] IV SCH; +[UNRECOGNIZED DRUG - OTHER] IV SCH; +diphenhydrAMINE 25 MG TAB (BENADRYL) CANCER CENTER PO SCH; +diphenhydrAMINE 50 MG/ML INJ (CANCER CENTER) IV PRN
== END 2020-02-19 | disposition home or self-care (01) ==
LOC: ONC 14:27
PROVIDERS: ATTEND Internal Medicine Hematology & Oncology
DX: Z51.11 Encounter for antineoplastic chemotherapy (principal); C64.1 Malignant neoplasm of right kidney, except renal pelvis; C79.51 Secondary malignant neoplasm of bone; C78.01 Secondary malignant neoplasm of right lung; E03.4 Atrophy of thyroid (acquired); S22.089A Unspecified fracture of T11-T12 vertebra, initial encounter for closed fracture; D50.0 Iron deficiency anemia secondary to blood loss (chronic); G62.9 Polyneuropathy, unspecified
CPT/HCPCS: 36415; 80053; 84443; 85025; 96365; 96413

== ENCOUNTER 2020-05-28 12:56 | Outpatient (RCR) | payer MEDICARE, OTHER ==
[2020-03-05 14:02] LABS: BASOPHILS # (AUTO) 0.1 10^3/uL (0.0-0.1); BASOPHILS % (AUTO) 1 % (0-10); EOSINOPHILS # (AUTO) 0.1 10^3/uL (0.0-0.3); EOSINOPHILS % (AUTO) 2 % (0-10); HEMATOCRIT 40 % (35-52); LYMPHOCYTES # (AUTO) 1.3 X 10^3 (1.0-4.0); LYMPHOCYTES % (AUTO) 27 % (12-44); MEAN CORPUSCULAR HEMOGLOBIN 30 PG (25-34); MEAN CORPUSCULAR HGB CONC 32 G/DL (32-36); MEAN CORPUSCULAR VOLUME 93 FL (80-99); MEAN PLATELET VOLUME 10.3 FL (7.4-10.4); MONOCYTES # (AUTO) 0.5 X 10^3 (0.0-1.0); MONOCYTES % (AUTO) 10 % (0-12); NEUTROPHILS # (AUTO) 2.9 X 10^3 (1.8-7.8); NEUTROPHILS % (AUTO) 60 % (42-75); PLATELET COUNT 234 10^3/uL (130-400); WHITE BLOOD COUNT 4.8 10^3/uL (4.3-11.0)
[2020-03-05 14:21] LABS: ALBUMIN 3.9 GM/DL (3.2-4.5); BILIRUBIN,TOTAL 0.5 MG/DL (0.1-1.0); CALCIUM 8.5 MG/DL (8.5-10.1); CREATININE SERUM 1.21 MG/DL (0.60-1.30); POTASSIUM 3.5 MMOL/L (3.6-5.0); TOTAL PROTEIN 6.7 GM/DL (6.4-8.2)
[2020-04-16 14:19] LABS: BASOPHILS # (AUTO) 0.1 10^3/uL (0.0-0.1); BASOPHILS % (AUTO) 1 % (0-10); EOSINOPHILS # (AUTO) 0.2 10^3/uL (0.0-0.3); EOSINOPHILS % (AUTO) 2 % (0-10); HEMATOCRIT 40 % (35-52); HEMOGLOBIN 12.9 G/DL (11.5-16.0); LYMPHOCYTES # (AUTO) 1.6 X 10^3 (1.0-4.0); LYMPHOCYTES % (AUTO) 21 % (12-44); MEAN CORPUSCULAR HEMOGLOBIN 30 PG (25-34); MEAN CORPUSCULAR HGB CONC 33 G/DL (32-36); MEAN CORPUSCULAR VOLUME 94 FL (80-99); MONOCYTES # (AUTO) 0.6 X 10^3 (0.0-1.0); MONOCYTES % (AUTO) 9 % (0-12); NEUTROPHILS % (AUTO) 67 % (42-75); PLATELET COUNT 218 10^3/uL (130-400); WHITE BLOOD COUNT 7.4 10^3/uL (4.3-11.0)
[2020-04-16 14:40] LABS: ALBUMIN 3.9 GM/DL (3.2-4.5); BILIRUBIN,TOTAL 0.6 MG/DL (0.1-1.0); CALCIUM 8.3 MG/DL (8.5-10.1); CREATININE SERUM 1.36 MG/DL (0.60-1.30); POTASSIUM 3.6 MMOL/L (3.6-5.0); TOTAL PROTEIN 6.6 GM/DL (6.4-8.2)
[~2020-05-28 12:56] MED LIST changes: -ACETAMINOPHEN 325 MG TAB (TYLENOL) CANCER CTR PO PRN; -ACETAMINOPHEN 500 MG TAB (TYLENOL) CANCER CTR PO PRN; -ATROPINE INJ 0.4 MG/ML SDV (CANCER CENTER) INJ SCH; -CALCIUM GLUCONATE IV SCH; -D5W 500 ML IV (CANCER CTR) 500 ML IV SCH; -DEXAMETHASONE INJECTION 10 MG in NS (IVPB) CANCER CENTER 50 ML IV SCH; -DEXAMETHASONE IV SCH; -DEXTROSE IV SCH; -FAMOTIDINE 20MG/2ML IV (CANCER CTR) IV SCH; -FOSAPREPITANT DIMEGLUMINE 150 MG in NS (IVPB) CANCER CENTER ONLY 150 ML IV SCH; -LORazepam 0.5 MG (ATIVAN) TABLET CANCER CTR PO PRN; -LORazepam INJ 2 MG/ML VIAL CANCER CTR IV SCH; -MAGNESIUM SULFATE 1 GM IV SCH; -METOCLOPRAMIDE 10 MG/2 ML IV SCH; -NS (IVPB) CANCER CENTER 250 ML IV SCH; -NS IV 1000 ML (CANCER CTR) IV SCH; -ONDANSETRON 8 MG, DEXAMETHASONE 4 MG/NS 50 ML IVPB (Cancer Ctr) IV SCH; -ONDANSETRON IV SCH; -ONDANSETRON MDV (CANCER CENTER 16 MG, DEXAMETHASONE INJECTION 10 MG in NS (IVPB) CANCER... IV SCH; -PALONOSETRON HCL 0.25 MG, DEXAMETHASONE INJECTION 10 MG in NS (IVPB) CANCER CENTER 50 ML IV SCH; -PALONOSETRON HCL 0.25 MG/5 ML IV SCH; -PROCHLORPERAZINE 10 MG PO SCH; -RANITIDINE IV SCH; -SODIUM CHLORIDE IV SCH; -ZOLEDRONIC ACID (CANCER CTR) 4 MG in NS (IVPB) CANCER CENTER 100 ML IV SCH; -[UNRECOGNIZED DRUG - OTHER] IV SCH; -[UNRECOGNIZED DRUG - OTHER] IV SCH; -[UNRECOGNIZED DRUG - OTHER] IV SCH; -diphenhydrAMINE 25 MG TAB (BENADRYL) CANCER CENTER PO SCH; -diphenhydrAMINE 50 MG/ML INJ (CANCER CENTER) IV PRN
[2020-05-28 13:16] LABS: BASOPHILS % (AUTO) 1 % (0-10); EOSINOPHILS # (AUTO) 0.1 10^3/uL (0.0-0.3); EOSINOPHILS % (AUTO) 2 % (0-10); HEMATOCRIT 41 % (35-52); HEMOGLOBIN 13.3 G/DL (11.5-16.0); LYMPHOCYTES # (AUTO) 1.8 X 10^3 (1.0-4.0); LYMPHOCYTES % (AUTO) 30 % (12-44); MEAN CORPUSCULAR HEMOGLOBIN 31 PG (25-34); MEAN CORPUSCULAR HGB CONC 33 G/DL (32-36); MEAN CORPUSCULAR VOLUME 94 FL (80-99); MEAN PLATELET VOLUME 10.2 FL (7.4-10.4); MONOCYTES # (AUTO) 0.4 X 10^3 (0.0-1.0); MONOCYTES % (AUTO) 7 % (0-12); NEUTROPHILS # (AUTO) 3.6 X 10^3 (1.8-7.8); NEUTROPHILS % (AUTO) 60 % (42-75); PLATELET COUNT 244 10^3/uL (130-400); WHITE BLOOD COUNT 5.9 10^3/uL (4.3-11.0)
[2020-05-28 13:42] LABS: ALBUMIN 3.9 GM/DL (3.2-4.5); BILIRUBIN,TOTAL 0.5 MG/DL (0.1-1.0); CALCIUM 8.6 MG/DL (8.5-10.1); CREATININE SERUM 1.23 MG/DL (0.60-1.30); POTASSIUM 3.5 MMOL/L (3.6-5.0); TOTAL PROTEIN 6.8 GM/DL (6.4-8.2)
== END 2020-06-03 | disposition home or self-care (01) ==
LOC: ONC 12:56
PROVIDERS: ATTEND Internal Medicine Hematology & Oncology
DX: Z51.11 Encounter for antineoplastic chemotherapy (principal); C64.1 Malignant neoplasm of right kidney, except renal pelvis; C79.51 Secondary malignant neoplasm of bone; C78.01 Secondary malignant neoplasm of right lung; E03.4 Atrophy of thyroid (acquired); S22.089A Unspecified fracture of T11-T12 vertebra, initial encounter for closed fracture; D50.0 Iron deficiency anemia secondary to blood loss (chronic); G62.9 Polyneuropathy, unspecified
CPT/HCPCS: 80053; 84443; 85025; 96413; G0463; 36415

== ENCOUNTER → 2020-07-10 | Outpatient (CLI) | payer MEDICARE, OTHER ==
[~2020-07-10] MED LIST changes: +CATHETER FLUSH 10 ML SYR IV PRN; +HOLD METFORMIN - RECEIVED CONTRAST 20 ML VIAL IV SCH; +IOHEXOL 350 MG/ML 100 ML (OMNIPAQUE 350) VIAL IV ONE; +NS 100 ML (IVPB) BAG IV ONE; -NS IV 500 ML (CANCER CENTER) IV SCH; -PEMBROLIZUMAB 200 MG in NS (IVPB) CANCER CENTER 50 ML IV SCH
--- NOTE | 2020-07-10 14:01 | Diagnostic Imaging Report ---
PROCEDURE: CT thoracic and lumbar spine with and without contrast. TECHNIQUE: CT imaging of the thoracic and lumbar spine before and after the administration of intravenous contrast. Auto Exposure Controls were utilized during the CT exam to meet ALARA standards for radiation dose reduction. INDICATION: Back pain. History of tumors removed from back. COMPARISON: CT thoracic and lumbar spine with IV contrast 10/13/2018. FINDINGS: Again seen are postoperative findings of posterior instrumentation at T8 through T12 spanning a T9-T10 decompressive laminectomy. The lytic changes involving the posterior right T10 vertebral body appears stable without evidence of progression. The anterior wedging of the T12 segment is also stable. Lucencies about the T12 greater than T11 pedicle screws are stable. No new suspicious enhancement or soft tissue mass. No new suspicious osteoblastic or lytic lesions in the thoracic or lumbar spine. Mild facet arthropathy at L4-L5 contributes to mild bilateral neural foraminal narrowing at these levels. Vertebral body heights are otherwise preserved. No fractures. No evidence of high-grade spinal canal stenosis on soft tissue windows. Mild scattered atherosclerotic calcifications. Right nephrectomy. Mild degenerative changes in the sacroiliac joints. IMPRESSION: Overall stable exam including posterior instrumentation at T8 through T12 spanning a T9-T10 laminectomy. There are stable lucencies about the T11 and T12 pedicle screw suspicious for loosening. The lytic changes in the T10 vertebral body are stable without evidence of progression. No suspicious enhancement or soft tissue mass is identified. Dictated by: Dictated on workstation # [id number]
== END ==
LOC: RAD 11:37
PROVIDERS: ATTEND Internal Medicine Hematology & Oncology
DX: C64.9 Malignant neoplasm of unspecified kidney, except renal pelvis (principal); C79.51 Secondary malignant neoplasm of bone; Z98.890 Other specified postprocedural states
CPT/HCPCS: 72130; 72133

== ENCOUNTER 2020-09-10 12:33 | Outpatient (RCR) | payer MEDICARE, OTHER ==
[2020-07-09 14:50] LABS: BASOPHILS # (AUTO) 0.1 10^3/uL (0.0-0.1); BASOPHILS % (AUTO) 1 % (0-10); EOSINOPHILS # (AUTO) 0.1 10^3/uL (0.0-0.3); EOSINOPHILS % (AUTO) 2 % (0-10); HEMATOCRIT 40 % (35-52); HEMOGLOBIN 12.8 g/dL (11.5-16.0); LYMPHOCYTES # (AUTO) 1.8 10^3/uL (1.0-4.0); LYMPHOCYTES % (AUTO) 30 % (12-44); MEAN CORPUSCULAR HEMOGLOBIN 31 pg (25-34); MEAN CORPUSCULAR HGB CONC 32 g/dL (32-36); MEAN CORPUSCULAR VOLUME 96 fL (80-99); MEAN PLATELET VOLUME 10.3 fL (9.0-12.2); MONOCYTES # (AUTO) 0.6 10^3/uL (0.0-1.0); MONOCYTES % (AUTO) 9 % (0-12); NEUTROPHILS # (AUTO) 3.4 10^3/uL (1.8-7.8); NEUTROPHILS % (AUTO) 58 % (42-75); PLATELET COUNT 245 10^3/uL (130-400)
[2020-07-09 15:07] LABS: ALBUMIN 3.9 GM/DL (3.2-4.5); BILIRUBIN,TOTAL 0.6 MG/DL (0.1-1.0); CALCIUM 8.3 MG/DL (8.5-10.1); CREATININE SERUM 1.13 MG/DL (0.60-1.30); POTASSIUM 3.6 MMOL/L (3.6-5.0); TOTAL PROTEIN 6.6 GM/DL (6.4-8.2)
[~2020-09-10 12:33] MED LIST changes: -CATHETER FLUSH 10 ML SYR IV PRN; -HOLD METFORMIN - RECEIVED CONTRAST 20 ML VIAL IV SCH; -IOHEXOL 350 MG/ML 100 ML (OMNIPAQUE 350) VIAL IV ONE; -NS 100 ML (IVPB) BAG IV ONE; +NS IV 500 ML (CANCER CENTER) IV SCH; +PEMBROLIZUMAB 200 MG in NS (IVPB) CANCER CENTER 50 ML IV SCH
== END 2020-09-16 | disposition home or self-care (01) ==
LOC: ONC 12:33
PROVIDERS: ATTEND Internal Medicine Hematology & Oncology
DX: Z51.11 Encounter for antineoplastic chemotherapy (principal); C64.1 Malignant neoplasm of right kidney, except renal pelvis; C79.51 Secondary malignant neoplasm of bone; C78.01 Secondary malignant neoplasm of right lung; E03.4 Atrophy of thyroid (acquired); S22.089A Unspecified fracture of T11-T12 vertebra, initial encounter for closed fracture; D50.0 Iron deficiency anemia secondary to blood loss (chronic); G62.9 Polyneuropathy, unspecified
CPT/HCPCS: 36415; 80053; 84443; 85025; 96413; 99213

== ENCOUNTER 2020-12-24 13:19 | Outpatient (RCR) | payer MEDICARE, OTHER ==
[2020-10-01 10:48] LABS: BASOPHILS % (AUTO) 1 % (0-10); EOSINOPHILS # (AUTO) 0.1 10^3/uL (0.0-0.3); EOSINOPHILS % (AUTO) 1 % (0-10); HEMATOCRIT 41 % (35-52); HEMOGLOBIN 13.3 g/dL (11.5-16.0); LYMPHOCYTES # (AUTO) 1.6 10^3/uL (1.0-4.0); LYMPHOCYTES % (AUTO) 26 % (12-44); MEAN CORPUSCULAR HEMOGLOBIN 31 pg (25-34); MEAN CORPUSCULAR HGB CONC 33 g/dL (32-36); MEAN CORPUSCULAR VOLUME 93 fL (80-99); MEAN PLATELET VOLUME 10.4 fL (9.0-12.2); MONOCYTES # (AUTO) 0.5 10^3/uL (0.0-1.0); MONOCYTES % (AUTO) 9 % (0-12); NEUTROPHILS % (AUTO) 64 % (42-75); PLATELET COUNT 224 10^3/uL (130-400); WHITE BLOOD COUNT 6.2 10^3/uL (4.3-11.0)
[2020-10-01 11:11] LABS: ALBUMIN 3.8 GM/DL (3.2-4.5); BILIRUBIN,TOTAL 0.6 MG/DL (0.1-1.0); CALCIUM 9.2 MG/DL (8.5-10.1); CREATININE SERUM 1.16 MG/DL (0.60-1.30); POTASSIUM 4.2 MMOL/L (3.6-5.0)
[2020-11-11 13:24] LABS: BASOPHILS # (AUTO) 0.1 10^3/uL (0.0-0.1); BASOPHILS % (AUTO) 1 % (0-10); EOSINOPHILS # (AUTO) 0.1 10^3/uL (0.0-0.3); EOSINOPHILS % (AUTO) 2 % (0-10); HEMATOCRIT 39 % (35-52); HEMOGLOBIN 12.5 g/dL (11.5-16.0); LYMPHOCYTES # (AUTO) 2.2 10^3/uL (1.0-4.0); LYMPHOCYTES % (AUTO) 32 % (12-44); MEAN CORPUSCULAR HEMOGLOBIN 30 pg (25-34); MEAN CORPUSCULAR HGB CONC 32 g/dL (32-36); MEAN CORPUSCULAR VOLUME 93 fL (80-99); MEAN PLATELET VOLUME 10.4 fL (9.0-12.2); MONOCYTES # (AUTO) 0.7 10^3/uL (0.0-1.0); MONOCYTES % (AUTO) 11 % (0-12); NEUTROPHILS # (AUTO) 3.7 10^3/uL (1.8-7.8); NEUTROPHILS % (AUTO) 55 % (42-75); PLATELET COUNT 238 10^3/uL (130-400); WHITE BLOOD COUNT 6.8 10^3/uL (4.3-11.0)
[2020-11-11 13:42] LABS: ALBUMIN 3.7 GM/DL (3.2-4.5); BILIRUBIN,TOTAL 0.4 MG/DL (0.1-1.0); CALCIUM 8.4 MG/DL (8.5-10.1); CREATININE SERUM 1.32 MG/DL (0.60-1.30); TOTAL PROTEIN 6.5 GM/DL (6.4-8.2)
[2020-12-24 13:51] LABS: BASOPHILS # (AUTO) 0.1 10^3/uL (0.0-0.1); BASOPHILS % (AUTO) 1 % (0-10); EOSINOPHILS # (AUTO) 0.1 10^3/uL (0.0-0.3); EOSINOPHILS % (AUTO) 1 % (0-10); HEMATOCRIT 42 % (35-52); HEMOGLOBIN 13.2 g/dL (11.5-16.0); LYMPHOCYTES # (AUTO) 1.3 10^3/uL (1.0-4.0); LYMPHOCYTES % (AUTO) 22 % (12-44); MEAN CORPUSCULAR HEMOGLOBIN 30 pg (25-34); MEAN CORPUSCULAR HGB CONC 32 g/dL (32-36); MEAN CORPUSCULAR VOLUME 94 fL (80-99); MEAN PLATELET VOLUME 10.7 fL (9.0-12.2); MONOCYTES # (AUTO) 0.6 10^3/uL (0.0-1.0); MONOCYTES % (AUTO) 9 % (0-12); NEUTROPHILS % (AUTO) 67 % (42-75); PLATELET COUNT 214 10^3/uL (130-400); WHITE BLOOD COUNT 6.1 10^3/uL (4.3-11.0)
[2020-12-24 14:05] LABS: BILIRUBIN,TOTAL 0.5 MG/DL (0.1-1.0); CALCIUM 8.8 MG/DL (8.5-10.1); CREATININE SERUM 1.2 MG/DL (0.60-1.30); TOTAL PROTEIN 7.3 GM/DL (6.4-8.2)
== END 2020-12-30 | disposition home or self-care (01) ==
LOC: ONC 13:19
PROVIDERS: ATTEND Internal Medicine Hematology & Oncology
DX: Z51.11 Encounter for antineoplastic chemotherapy (principal); C64.1 Malignant neoplasm of right kidney, except renal pelvis; C79.51 Secondary malignant neoplasm of bone; C78.01 Secondary malignant neoplasm of right lung; G62.9 Polyneuropathy, unspecified; E03.4 Atrophy of thyroid (acquired); E03.9 Hypothyroidism, unspecified; C79.01 Secondary malignant neoplasm of right kidney and renal pelvis; S22.089A Unspecified fracture of T11-T12 vertebra, initial encounter for closed fracture; D50.0 Iron deficiency anemia secondary to blood loss (chronic)
CPT/HCPCS: 80053; 84443; 85025; 96413; G0463; 36415

== ENCOUNTER 2021-04-08 13:16 | Outpatient (RCR) | payer MEDICARE, OTHER ==
[2021-02-03 13:53] LABS: BASOPHILS # (AUTO) 0.1 10^3/uL (0.0-0.1); BASOPHILS % (AUTO) 1 % (0-10); EOSINOPHILS # (AUTO) 0.1 10^3/uL (0.0-0.3); EOSINOPHILS % (AUTO) 2 % (0-10); HEMATOCRIT 43 % (35-52); HEMOGLOBIN 13.9 g/dL (11.5-16.0); LYMPHOCYTES # (AUTO) 1.9 10^3/uL (1.0-4.0); LYMPHOCYTES % (AUTO) 25 % (12-44); MEAN CORPUSCULAR HEMOGLOBIN 31 pg (25-34); MEAN CORPUSCULAR HGB CONC 33 g/dL (32-36); MEAN CORPUSCULAR VOLUME 93 fL (80-99); MEAN PLATELET VOLUME 10.8 fL (9.0-12.2); MONOCYTES # (AUTO) 0.8 10^3/uL (0.0-1.0); MONOCYTES % (AUTO) 10 % (0-12); NEUTROPHILS # (AUTO) 4.6 10^3/uL (1.8-7.8); NEUTROPHILS % (AUTO) 62 % (42-75); PLATELET COUNT 245 10^3/uL (130-400); WHITE BLOOD COUNT 7.5 10^3/uL (4.3-11.0)
[2021-02-03 14:13] LABS: ALBUMIN 3.9 GM/DL (3.2-4.5); BILIRUBIN,TOTAL 0.5 MG/DL (0.1-1.0); CALCIUM 8.5 MG/DL (8.5-10.1); CREATININE SERUM 1.2 MG/DL (0.60-1.30); POTASSIUM 3.5 MMOL/L (3.6-5.0); TOTAL PROTEIN 6.9 GM/DL (6.4-8.2)
[2021-03-18 13:23] LABS: BASOPHILS # (AUTO) 0.1 10^3/uL (0.0-0.1); BASOPHILS % (AUTO) 1 % (0-10); EOSINOPHILS # (AUTO) 0.2 10^3/uL (0.0-0.3); EOSINOPHILS % (AUTO) 2 % (0-10); HEMATOCRIT 41 % (35-52); HEMOGLOBIN 13.6 g/dL (11.5-16.0); LYMPHOCYTES # (AUTO) 2.1 10^3/uL (1.0-4.0); LYMPHOCYTES % (AUTO) 29 % (12-44); MEAN CORPUSCULAR HEMOGLOBIN 31 pg (25-34); MEAN CORPUSCULAR HGB CONC 33 g/dL (32-36); MEAN CORPUSCULAR VOLUME 93 fL (80-99); MEAN PLATELET VOLUME 10.9 fL (9.0-12.2); MONOCYTES # (AUTO) 0.8 10^3/uL (0.0-1.0); MONOCYTES % (AUTO) 11 % (0-12); NEUTROPHILS % (AUTO) 56 % (42-75); PLATELET COUNT 224 10^3/uL (130-400); WHITE BLOOD COUNT 7.1 10^3/uL (4.3-11.0)
[2021-03-18 13:43] LABS: ALBUMIN 3.7 GM/DL (3.2-4.5); BILIRUBIN,TOTAL 0.5 MG/DL (0.1-1.0); CALCIUM 8.9 MG/DL (8.5-10.1); CREATININE SERUM 1.15 MG/DL (0.60-1.30); POTASSIUM 4.4 MMOL/L (3.6-5.0)
== END 2021-04-14 | disposition home or self-care (01) ==
LOC: ONC 13:16
PROVIDERS: ATTEND Internal Medicine Hematology & Oncology
DX: Z51.11 Encounter for antineoplastic chemotherapy (principal); C64.1 Malignant neoplasm of right kidney, except renal pelvis; C79.51 Secondary malignant neoplasm of bone; C78.01 Secondary malignant neoplasm of right lung; G62.9 Polyneuropathy, unspecified; E03.4 Atrophy of thyroid (acquired); E03.9 Hypothyroidism, unspecified; C79.01 Secondary malignant neoplasm of right kidney and renal pelvis; S22.089A Unspecified fracture of T11-T12 vertebra, initial encounter for closed fracture; D50.0 Iron deficiency anemia secondary to blood loss (chronic)
CPT/HCPCS: 36415; 80053; 84443; 85025; 96413

== ENCOUNTER 2021-07-01 12:32 | Outpatient (RCR) | payer MEDICARE, OTHER ==
[2021-04-29 13:30] LABS: BASOPHILS # (AUTO) 0.1 10^3/uL (0.0-0.1); BASOPHILS % (AUTO) 1 % (0-10); EOSINOPHILS # (AUTO) 0.1 10^3/uL (0.0-0.3); EOSINOPHILS % (AUTO) 2 % (0-10); HEMATOCRIT 41 % (35-52); HEMOGLOBIN 13.1 g/dL (11.5-16.0); LYMPHOCYTES # (AUTO) 1.6 10^3/uL (1.0-4.0); LYMPHOCYTES % (AUTO) 26 % (12-44); MEAN CORPUSCULAR HEMOGLOBIN 31 pg (25-34); MEAN CORPUSCULAR HGB CONC 32 g/dL (32-36); MEAN CORPUSCULAR VOLUME 95 fL (80-99); MEAN PLATELET VOLUME 10.4 fL (9.0-12.2); MONOCYTES # (AUTO) 0.7 10^3/uL (0.0-1.0); MONOCYTES % (AUTO) 11 % (0-12); NEUTROPHILS # (AUTO) 3.6 10^3/uL (1.8-7.8); NEUTROPHILS % (AUTO) 59 % (42-75); PLATELET COUNT 236 10^3/uL (130-400); WHITE BLOOD COUNT 6.1 10^3/uL (4.3-11.0)
[2021-04-29 13:48] LABS: ALBUMIN 3.9 GM/DL (3.2-4.5); BILIRUBIN,TOTAL 0.5 MG/DL (0.1-1.0); CALCIUM 9.2 MG/DL (8.5-10.1); CREATININE SERUM 1.2 MG/DL (0.60-1.30); POTASSIUM 3.5 MMOL/L (3.6-5.0); TOTAL PROTEIN 7.4 GM/DL (6.4-8.2)
[~2021-07-01 12:32] MED LIST changes: +NS IV SCH; +PEMBROLIZUMAB IV SCH
[2021-07-01 13:01] LABS: BASOPHILS # (AUTO) 0.1 10^3/uL (0.0-0.1); BASOPHILS % (AUTO) 1 % (0-10); EOSINOPHILS # (AUTO) 0.1 10^3/uL (0.0-0.3); EOSINOPHILS % (AUTO) 2 % (0-10); HEMATOCRIT 42 % (35-52); HEMOGLOBIN 13.5 g/dL (11.5-16.0); LYMPHOCYTES # (AUTO) 1.6 10^3/uL (1.0-4.0); LYMPHOCYTES % (AUTO) 25 % (12-44); MEAN CORPUSCULAR HEMOGLOBIN 30 pg (25-34); MEAN CORPUSCULAR HGB CONC 32 g/dL (32-36); MEAN CORPUSCULAR VOLUME 95 fL (80-99); MONOCYTES # (AUTO) 0.7 10^3/uL (0.0-1.0); MONOCYTES % (AUTO) 10 % (0-12); NEUTROPHILS # (AUTO) 4.1 10^3/uL (1.8-7.8); NEUTROPHILS % (AUTO) 62 % (42-75); PLATELET COUNT 245 10^3/uL (130-400); WHITE BLOOD COUNT 6.5 10^3/uL (4.3-11.0)
[2021-07-01 13:43] LABS: ALBUMIN 3.8 GM/DL (3.2-4.5); BILIRUBIN,TOTAL 0.5 MG/DL (0.1-1.0); CALCIUM 9.4 MG/DL (8.5-10.1); CREATININE SERUM 1.12 MG/DL (0.60-1.30); POTASSIUM 3.9 MMOL/L (3.6-5.0)
== END 2021-07-28 | disposition home or self-care (01) ==
LOC: ONC 12:32
PROVIDERS: ATTEND Internal Medicine Hematology & Oncology
DX: Z51.11 Encounter for antineoplastic chemotherapy (principal); Z45.2 Encounter for adjustment and management of vascular access device; C64.1 Malignant neoplasm of right kidney, except renal pelvis; C79.51 Secondary malignant neoplasm of bone; C78.01 Secondary malignant neoplasm of right lung; G62.9 Polyneuropathy, unspecified; E03.9 Hypothyroidism, unspecified; M48.54XA Collapsed vertebra, not elsewhere classified, thoracic region, initial encounter for fracture; D64.9 Anemia, unspecified; Z90.5 Acquired absence of kidney; Z98.890 Other specified postprocedural states; Z92.3 Personal history of irradiation
CPT/HCPCS: 80053; 84443; 85025; 96413; G0463; 36415

== ENCOUNTER 2021-08-12 13:41 | Outpatient (RCR) | payer MEDICARE, OTHER ==
[~2021-08-12 13:41] MED LIST changes: -PEMBROLIZUMAB 200 MG in NS (IVPB) CANCER CENTER 50 ML IV SCH
[2021-08-12 14:13] LABS: BASOPHILS # (AUTO) 0.1 10^3/uL (0.0-0.1); BASOPHILS % (AUTO) 1 % (0-10); EOSINOPHILS # (AUTO) 0.1 10^3/uL (0.0-0.3); EOSINOPHILS % (AUTO) 2 % (0-10); HEMATOCRIT 39 % (35-52); HEMOGLOBIN 12.9 g/dL (11.5-16.0); LYMPHOCYTES # (AUTO) 1.6 10^3/uL (1.0-4.0); LYMPHOCYTES % (AUTO) 26 % (12-44); MEAN CORPUSCULAR HEMOGLOBIN 31 pg (25-34); MEAN CORPUSCULAR HGB CONC 33 g/dL (32-36); MEAN CORPUSCULAR VOLUME 93 fL (80-99); MEAN PLATELET VOLUME 10.2 fL (9.0-12.2); MONOCYTES # (AUTO) 0.6 10^3/uL (0.0-1.0); MONOCYTES % (AUTO) 10 % (0-12); NEUTROPHILS # (AUTO) 3.8 10^3/uL (1.8-7.8); NEUTROPHILS % (AUTO) 61 % (42-75); PLATELET COUNT 233 10^3/uL (130-400); WHITE BLOOD COUNT 6.2 10^3/uL (4.3-11.0)
[2021-08-12 14:58] LABS: ALBUMIN 3.9 GM/DL (3.2-4.5); BILIRUBIN,TOTAL 0.5 MG/DL (0.1-1.0); CALCIUM 9.4 MG/DL (8.5-10.1); CREATININE SERUM 1.04 MG/DL (0.60-1.30); POTASSIUM 3.7 MMOL/L (3.6-5.0)
== END 2021-09-19 | disposition home or self-care (01) ==
LOC: ONC 13:41
PROVIDERS: ATTEND Internal Medicine Hematology & Oncology
DX: Z51.11 Encounter for antineoplastic chemotherapy (principal); Z45.2 Encounter for adjustment and management of vascular access device; C64.1 Malignant neoplasm of right kidney, except renal pelvis; C79.51 Secondary malignant neoplasm of bone; C78.01 Secondary malignant neoplasm of right lung; G62.9 Polyneuropathy, unspecified; E03.9 Hypothyroidism, unspecified; M48.54XA Collapsed vertebra, not elsewhere classified, thoracic region, initial encounter for fracture; D64.9 Anemia, unspecified; Z90.5 Acquired absence of kidney; Z98.890 Other specified postprocedural states; Z92.3 Personal history of irradiation
CPT/HCPCS: 80053; 84443; 85025; 96413; G0463; 36415

== ENCOUNTER 2021-09-23 14:09 | Outpatient (RCR) | payer MEDICARE, OTHER ==
[2021-09-23 14:48] LABS: BASOPHILS # (AUTO) 0.1 10^3/uL (0.0-0.1); BASOPHILS % (AUTO) 1 % (0-10); EOSINOPHILS # (AUTO) 0.2 10^3/uL (0.0-0.3); EOSINOPHILS % (AUTO) 2 % (0-10); HEMATOCRIT 39 % (35-52); HEMOGLOBIN 12.7 g/dL (11.5-16.0); LYMPHOCYTES # (AUTO) 1.5 10^3/uL (1.0-4.0); LYMPHOCYTES % (AUTO) 23 % (12-44); MEAN CORPUSCULAR HEMOGLOBIN 31 pg (25-34); MEAN CORPUSCULAR HGB CONC 33 g/dL (32-36); MEAN CORPUSCULAR VOLUME 94 fL (80-99); MEAN PLATELET VOLUME 10.2 fL (9.0-12.2); MONOCYTES # (AUTO) 0.7 10^3/uL (0.0-1.0); MONOCYTES % (AUTO) 11 % (0-12); NEUTROPHILS # (AUTO) 4.2 10^3/uL (1.8-7.8); NEUTROPHILS % (AUTO) 63 % (42-75); PLATELET COUNT 244 10^3/uL (130-400); WHITE BLOOD COUNT 6.6 10^3/uL (4.3-11.0)
[2021-09-23 15:02] LABS: BILIRUBIN,TOTAL 0.5 MG/DL (0.1-1.0); CALCIUM 9.2 MG/DL (8.5-10.1); CREATININE SERUM 1.14 MG/DL (0.60-1.30); POTASSIUM 3.4 MMOL/L (3.6-5.0); TOTAL PROTEIN 7.2 GM/DL (6.4-8.2)
== END 2021-10-20 | disposition home or self-care (01) ==
LOC: ONC 14:09
PROVIDERS: ATTEND Internal Medicine Hematology & Oncology
DX: Z51.11 Encounter for antineoplastic chemotherapy (principal); Z45.2 Encounter for adjustment and management of vascular access device; C64.1 Malignant neoplasm of right kidney, except renal pelvis; C79.51 Secondary malignant neoplasm of bone; E03.9 Hypothyroidism, unspecified; Z90.5 Acquired absence of kidney; Z98.1 Arthrodesis status
CPT/HCPCS: 80053; 84443; 85025; 96413; G0463; 36415; 99213

== ENCOUNTER 2021-11-05 10:00 | Outpatient (RCR) | payer MEDICARE, OTHER ==
[~2021-11-05 10:00] MED LIST changes: +NS (IVPB) CANCER CENTER 250 ML IV SCH
[2021-11-05 10:35] LABS: BASOPHILS % (AUTO) 1 % (0-10); EOSINOPHILS % (AUTO) 1 % (0-10); HEMATOCRIT 40 % (35-52); HEMOGLOBIN 12.8 g/dL (11.5-16.0); LYMPHOCYTES # (AUTO) 1.5 10^3/uL (1.0-4.0); LYMPHOCYTES % (AUTO) 26 % (12-44); MEAN CORPUSCULAR HEMOGLOBIN 30 pg (25-34); MEAN CORPUSCULAR HGB CONC 32 g/dL (32-36); MEAN CORPUSCULAR VOLUME 93 fL (80-99); MEAN PLATELET VOLUME 10.6 fL (9.0-12.2); MONOCYTES # (AUTO) 0.5 10^3/uL (0.0-1.0); MONOCYTES % (AUTO) 9 % (0-12); NEUTROPHILS # (AUTO) 3.7 10^3/uL (1.8-7.8); NEUTROPHILS % (AUTO) 64 % (42-75); PLATELET COUNT 233 10^3/uL (130-400); WHITE BLOOD COUNT 5.7 10^3/uL (4.3-11.0)
[2021-11-05 11:08] LABS: ALBUMIN 3.8 GM/DL (3.2-4.5); BILIRUBIN,TOTAL 0.4 MG/DL (0.1-1.0); CALCIUM 8.9 MG/DL (8.5-10.1); CREATININE SERUM 1.08 MG/DL (0.60-1.30); POTASSIUM 4.4 MMOL/L (3.6-5.0)
== END 2021-11-17 | disposition home or self-care (01) ==
LOC: ONC 10:00
PROVIDERS: ATTEND Internal Medicine Hematology & Oncology
DX: Z51.11 Encounter for antineoplastic chemotherapy (principal); Z45.2 Encounter for adjustment and management of vascular access device; C64.1 Malignant neoplasm of right kidney, except renal pelvis; C79.51 Secondary malignant neoplasm of bone; E03.9 Hypothyroidism, unspecified; E66.9 Obesity, unspecified; M48.54XA Collapsed vertebra, not elsewhere classified, thoracic region, initial encounter for fracture; Z90.5 Acquired absence of kidney; Z98.1 Arthrodesis status
CPT/HCPCS: 80053; 84443; 85025; 96413; G0463; 36415; 99213

== ENCOUNTER → 2021-11-07 | Outpatient (CLI) | payer MEDICARE, OTHER ==
[~2021-11-07] MED LIST changes: +CATHETER FLUSH 10 ML SYR IV PRN; +HOLD METFORMIN - RECEIVED CONTRAST 20 ML VIAL IV SCH; +IOHEXOL 350 MG/ML 100 ML (OMNIPAQUE 350) VIAL IV ONE; -NS (IVPB) CANCER CENTER 250 ML IV SCH; +NS 100 ML (IVPB) BAG IV ONE; -NS IV 500 ML (CANCER CENTER) IV SCH; -NS IV SCH; -PEMBROLIZUMAB IV SCH
--- NOTE | 2021-11-07 12:48 | Diagnostic Imaging Report ---
PROCEDURE: CT chest, abdomen, and pelvis with contrast. TECHNIQUE: Multiple contiguous axial images were obtained through the chest, abdomen, and pelvis after the administration of intravenous contrast. Auto Exposure Controls were utilized during the CT exam to meet ALARA standards for radiation dose reduction. INDICATION: Secondary malignant neoplasm of the right kidney. History of right kidney removal as well as resection of the thoracic spine tumors. On immunotherapy. Follow-up. COMPARISON: CT pelvis from 10/13/2018. CT thoracic spine from 07/10/2020 FINDINGS: CT CHEST: The heart is normal in size. There is no pericardial effusion. The aorta is normal in caliber and there is mild atherosclerosis. There is a markedly hypervascular mass in the right lower paratracheal region which measures 4.9 cm AP, 3.3 cm transverse, and 3.5 cm craniocaudal. This abuts the posterior wall of the SVC and the right wall of the trachea. This lies immediately superior to the azygos vein. This is not seen on the prior PET scan. No masses are seen in the lungs. There is no pleural effusion or pneumothorax. There is no consolidation. No central endobronchial lesions are identified. There are postsurgical changes from prior posterior fusion of the thoracic spine from T8 to T12, with no pedicle screws T10. The thoracic spine is suboptimally evaluated on this [id number], but there is a large defect at T10 which appears stable compared to the prior exam. Degenerative changes in the thoracic spine appears stable. There is compression deformity of the T12 vertebral body which is unchanged. There is loosening of the T12 pedicle screws which is similar to 2020. CT abdomen and pelvis: The liver demonstrates no focal lesions. The spleen appears normal. The pancreas is normal. The adrenal glands appear normal. The right kidney is absent. The left kidney is normal with no enhancing lesions or hydronephrosis. There is moderate atherosclerosis in the aorta. There is no aneurysmal dilatation. No lymphadenopathy is seen. There is moderate stool in the colon. The appendix is not seen but no secondary findings of appendicitis are present. There is a small hiatal hernia. The bowel loops are nondistended without obstruction. No free fluid or free air is seen. No acute osseous abnormality is seen. IMPRESSION: 1. Hypervascular mediastinal mass in the right lower paratracheal region, abutting the trachea and SVC. This is concerning for neoplasm, consider tissue sampling. 2. Absent right kidney. No findings of recurrence or metastasis in the abdomen and pelvis. 3. Stable postsurgical changes and posterior fusion in the thoracic spine. There is chronic compression deformity and pedicle screw loosening at T12. Dictated by: Dictated on workstation # [id number]
== END ==
LOC: RAD 10:05
PROVIDERS: ATTEND Internal Medicine Hematology & Oncology
DX: C80.1 Malignant (primary) neoplasm, unspecified (principal); C79.01 Secondary malignant neoplasm of right kidney and renal pelvis; M43.8X4 Other specified deforming dorsopathies, thoracic region; Z90.5 Acquired absence of kidney; Z98.890 Other specified postprocedural states; Z98.1 Arthrodesis status
CPT/HCPCS: 71260; 74177

== ENCOUNTER 2021-12-17 09:23 | Outpatient (RCR) | payer MEDICARE, OTHER ==
[~2021-12-17] VITALS: Ht 152.4 cm; Wt 81.2 kg
[~2021-12-17 09:23] MED LIST changes: -CATHETER FLUSH 10 ML SYR IV PRN; +HEParin (CENTRAL IV FLUSH) 500 UNIT/5 ML SYR IV PRN; -HOLD METFORMIN - RECEIVED CONTRAST 20 ML VIAL IV SCH; -IOHEXOL 350 MG/ML 100 ML (OMNIPAQUE 350) VIAL IV ONE; +NS (IVPB) 250 ML IV SCH; -NS 100 ML (IVPB) BAG IV ONE; +NS IV SCH; +PEMBROLIZUMAB IV SCH
[2021-12-17 10:06] LABS: BASOPHILS # (AUTO) 0.1 10^3/uL (0.0-0.1); BASOPHILS % (AUTO) 1 % (0-10); EOSINOPHILS # (AUTO) 0.1 10^3/uL (0.0-0.3); EOSINOPHILS % (AUTO) 1 % (0-10); HEMATOCRIT 42 % (35-52); HEMOGLOBIN 13.2 g/dL (11.5-16.0); LYMPHOCYTES # (AUTO) 1.8 10^3/uL (1.0-4.0); LYMPHOCYTES % (AUTO) 28 % (12-44); MEAN CORPUSCULAR HEMOGLOBIN 30 pg (25-34); MEAN CORPUSCULAR HGB CONC 32 g/dL (32-36); MEAN CORPUSCULAR VOLUME 93 fL (80-99); MEAN PLATELET VOLUME 10.1 fL (9.0-12.2); MONOCYTES # (AUTO) 0.7 10^3/uL (0.0-1.0); MONOCYTES % (AUTO) 10 % (0-12); NEUTROPHILS # (AUTO) 3.7 10^3/uL (1.8-7.8); NEUTROPHILS % (AUTO) 59 % (42-75); PLATELET COUNT 251 10^3/uL (130-400); WHITE BLOOD COUNT 6.3 10^3/uL (4.3-11.0)
[2021-12-17 10:36] LABS: ALBUMIN 3.8 GM/DL (3.2-4.5); BILIRUBIN,TOTAL 0.6 MG/DL (0.1-1.0); CALCIUM 9.3 MG/DL (8.5-10.1); CREATININE SERUM 1.13 MG/DL (0.60-1.30); POTASSIUM 4.2 MMOL/L (3.6-5.0); TOTAL PROTEIN 6.8 GM/DL (6.4-8.2)
== END 2021-12-18 | disposition home or self-care (01) ==
LOC: ONC 09:23
PROVIDERS: ATTEND Internal Medicine Hematology & Oncology
DX: Z51.11 Encounter for antineoplastic chemotherapy (principal); Z45.2 Encounter for adjustment and management of vascular access device; C64.1 Malignant neoplasm of right kidney, except renal pelvis; C79.51 Secondary malignant neoplasm of bone; E03.9 Hypothyroidism, unspecified; E66.9 Obesity, unspecified; M48.54XA Collapsed vertebra, not elsewhere classified, thoracic region, initial encounter for fracture; Z90.5 Acquired absence of kidney; Z98.1 Arthrodesis status
CPT/HCPCS: 36591; 80053; 84443; 85025; 96360; 96413; 99213

== ENCOUNTER 2022-02-19 14:17 | Outpatient (RCR) | payer MEDICARE, OTHER ==
[2022-02-19 15:27] LABS: BASOPHILS # (AUTO) 0.1 10^3/uL (0.0-0.1); BASOPHILS % (AUTO) 1 % (0-10); EOSINOPHILS # (AUTO) 0.2 10^3/uL (0.0-0.3); EOSINOPHILS % (AUTO) 4 % (0-10); HEMATOCRIT 40 % (35-52); HEMOGLOBIN 12.8 g/dL (11.5-16.0); LYMPHOCYTES # (AUTO) 1.5 X 10^3 (1.0-4.0); LYMPHOCYTES % (AUTO) 29 % (12-44); MEAN CORPUSCULAR HEMOGLOBIN 30 pg (25-34); MEAN CORPUSCULAR HGB CONC 32 g/dL (32-36); MEAN CORPUSCULAR VOLUME 96 fL (80-99); MEAN PLATELET VOLUME 10.5 fL (9.0-12.2); MONOCYTES # (AUTO) 0.7 X 10^3 (0.0-1.0); MONOCYTES % (AUTO) 13 % (0-12); NEUTROPHILS # (AUTO) 2.9 X 10^3 (1.8-7.8); NEUTROPHILS % (AUTO) 53 % (42-75); PLATELET COUNT 218 10^3/uL (130-400); WHITE BLOOD COUNT 5.4 10^3/uL (4.3-11.0)
[2022-02-19 15:29] LABS: POTASSIUM 4.1 MMOL/L (3.6-5.0)
[2022-02-19 15:31] LABS: TOTAL PROTEIN 7.1 GM/DL (6.4-8.2)
[2022-02-19 15:33] LABS: BILIRUBIN,TOTAL 0.5 MG/DL (0.1-1.0)
[2022-02-19 15:35] LABS: CREATININE SERUM 1.15 MG/DL (0.60-1.30)
== END 2022-03-19 | disposition home or self-care (01) ==
LOC: ONC 14:17
PROVIDERS: ATTEND Internal Medicine Hematology & Oncology
DX: Z51.11 Encounter for antineoplastic chemotherapy (principal); C64.1 Malignant neoplasm of right kidney, except renal pelvis; C79.51 Secondary malignant neoplasm of bone; E03.9 Hypothyroidism, unspecified; E66.9 Obesity, unspecified; M48.54XA Collapsed vertebra, not elsewhere classified, thoracic region, initial encounter for fracture; Z90.5 Acquired absence of kidney; Z98.1 Arthrodesis status
CPT/HCPCS: 80053; 84443; 85025; 96413; G0463; 36415

== ENCOUNTER 2022-04-02 13:19 | Outpatient (RCR) | payer MEDICARE, OTHER ==
[2022-04-02 14:25] LABS: BASOPHILS # (AUTO) 0.1 10^3/uL (0.0-0.1); BASOPHILS % (AUTO) 1 % (0-10); EOSINOPHILS # (AUTO) 0.1 10^3/uL (0.0-0.3); EOSINOPHILS % (AUTO) 2 % (0-10); HEMATOCRIT 42 % (35-52); HEMOGLOBIN 13.3 g/dL (11.5-16.0); LYMPHOCYTES # (AUTO) 1.6 10^3/uL (1.0-4.0); LYMPHOCYTES % (AUTO) 28 % (12-44); MEAN CORPUSCULAR HEMOGLOBIN 30 pg (25-34); MEAN CORPUSCULAR HGB CONC 32 g/dL (32-36); MEAN CORPUSCULAR VOLUME 94 fL (80-99); MEAN PLATELET VOLUME 10.4 fL (9.0-12.2); MONOCYTES # (AUTO) 0.8 10^3/uL (0.0-1.0); MONOCYTES % (AUTO) 13 % (0-12); NEUTROPHILS # (AUTO) 3.3 10^3/uL (1.8-7.8); NEUTROPHILS % (AUTO) 56 % (42-75); PLATELET COUNT 250 10^3/uL (130-400); WHITE BLOOD COUNT 5.8 10^3/uL (4.3-11.0)
[2022-04-02 14:47] LABS: ALBUMIN 4.2 GM/DL (3.2-4.5); BILIRUBIN,TOTAL 0.5 MG/DL (0.1-1.0); CALCIUM 8.9 MG/DL (8.5-10.1); CREATININE SERUM 1.27 MG/DL (0.60-1.30); POTASSIUM 3.5 MMOL/L (3.6-5.0); TOTAL PROTEIN 7.3 GM/DL (6.4-8.2)
== END 2022-04-19 | disposition home or self-care (01) ==
LOC: ONC 13:19
PROVIDERS: ATTEND Internal Medicine Hematology & Oncology
DX: Z51.11 Encounter for antineoplastic chemotherapy (principal); C64.9 Malignant neoplasm of unspecified kidney, except renal pelvis; E03.9 Hypothyroidism, unspecified
CPT/HCPCS: 80053; 85025; 96413; G0463; 36415

== ENCOUNTER 2022-04-23 13:51 | Outpatient (RCR) | payer MEDICARE, OTHER ==
[~2022-04-23 13:51] MED LIST changes: +PEMBROLIZUMAB 200 MG in NS (IVPB) 50 ML IV SCH
== END 2022-05-20 | disposition home or self-care (01) ==
LOC: ONC 13:51
PROVIDERS: ATTEND Internal Medicine Hematology & Oncology
DX: C64.9 Malignant neoplasm of unspecified kidney, except renal pelvis (principal); C79.51 Secondary malignant neoplasm of bone; E03.9 Hypothyroidism, unspecified; E66.9 Obesity, unspecified

== ENCOUNTER 2022-08-11 10:21 | Outpatient (RCR) | payer MEDICARE, OTHER ==
[~2022-08-11 10:21] MED LIST changes: -CATHETER FLUSH 10 ML SYR IV PRN; +HEParin (CENTRAL IV FLUSH) 500 UNIT/5 ML SYR IV PRN; -HOLD METFORMIN - RECEIVED CONTRAST 20 ML VIAL IV SCH; -IOHEXOL 350 MG/ML 100 ML (OMNIPAQUE 350) VIAL IV ONE; +NS (IVPB) 250 ML IV SCH; -NS 100 ML (IVPB) BAG IV ONE; +NS IV SCH; +PEMBROLIZUMAB 200 MG in NS (IVPB) 50 ML IV SCH; +PEMBROLIZUMAB IV SCH
== END 2022-08-19 | disposition home or self-care (01) ==
LOC: ONC 10:21
PROVIDERS: ATTEND Internal Medicine Hematology & Oncology
DX: C64.9 Malignant neoplasm of unspecified kidney, except renal pelvis (principal); C79.51 Secondary malignant neoplasm of bone; E03.9 Hypothyroidism, unspecified; E66.9 Obesity, unspecified; Z90.5 Acquired absence of kidney; Z98.890 Other specified postprocedural states; Z92.3 Personal history of irradiation
CPT/HCPCS: 99213

== ENCOUNTER → 2022-08-11 | Outpatient (CLI) | payer MEDICARE, OTHER ==
[~2022-08-11] MED LIST changes: +CATHETER FLUSH 10 ML SYR IV PRN; -HEParin (CENTRAL IV FLUSH) 500 UNIT/5 ML SYR IV PRN; +HOLD METFORMIN - RECEIVED CONTRAST 20 ML VIAL IV SCH; +IOHEXOL 350 MG/ML 100 ML (OMNIPAQUE 350) VIAL IV ONE; -NS (IVPB) 250 ML IV SCH; +NS 100 ML (IVPB) BAG IV ONE; -NS IV SCH; -PEMBROLIZUMAB 200 MG in NS (IVPB) 50 ML IV SCH; -PEMBROLIZUMAB IV SCH
[2022-08-11 10:43] LABS: HEMATOCRIT 43 % (35-52); HEMOGLOBIN 13.7 g/dL (11.5-16.0); MEAN CORPUSCULAR HEMOGLOBIN 29 pg (25-34); MEAN CORPUSCULAR HGB CONC 32 g/dL (32-36); MEAN CORPUSCULAR VOLUME 90 fL (80-99); MEAN PLATELET VOLUME 9.8 fL (9.0-12.2); PLATELET COUNT 282 10^3/uL (130-400); WHITE BLOOD COUNT 6.2 10^3/uL (4.3-11.0)
[2022-08-11 11:09] LABS: ALBUMIN 3.8 GM/DL (3.2-4.5); BILIRUBIN,TOTAL 0.7 MG/DL (0.1-1.0); CALCIUM 9.2 MG/DL (8.5-10.1); CREATININE SERUM 1.24 MG/DL (0.60-1.30); TOTAL PROTEIN 7.4 GM/DL (6.4-8.2)
--- NOTE | 2022-08-11 13:45 | Diagnostic Imaging Report ---
PROCEDURE: CT chest, abdomen, and pelvis with contrast. TECHNIQUE: Multiple contiguous axial images were obtained through the chest, abdomen, and pelvis after the administration of intravenous contrast. Auto Exposure Controls were utilized during the CT exam to meet ALARA standards for radiation dose reduction. INDICATION: Metastatic renal cell carcinoma. COMPARISON: 11/07/2021. FINDINGS: CHEST: Previously, there was a very large hyperenhancing lower right paratracheal mediastinal bilobed configured mass or masses having measured 4.9 x 3.3 x 3.5 cm. On followup, there are two adjacent much smaller and less dense paratracheal lesions. The larger more caudal is at the level of the taty measuring only 1.8 x 1.6 cm. The smaller more cephalad is only 8 mm in long axis. These show central low attenuation and likely reflect elements of central necrosis. There have, however, been adverse changes with new subcarinal mediastinal lymphadenopathy with the largest mass measuring 2.7 x 2.5 cm. New right hilar nury metastasis measures 2.1 x 1.5 cm. There are multiple new bilateral pulmonary nodules numbering greater than 10 with the largest measuring 2.1 x 2.4 cm with the majority of nodules being less than 1 cm. Multilevel mid to lower thoracic fusion, laminectomy, and lytic changes, most notably at the T11 level, are stable. No new bony lesion. The axilla appears unremarkable. The aorta is nonaneurysmal. No central PE. ABDOMEN/PELVIS: The liver, spleen, adrenals, and pancreas are unremarkable. No bile duct dilatation. We again note no abdominal/pelvic mesenteric or retroperitoneal lymph nodes. No omental infiltration. No ascites. There are chronic noninflamed diverticular changes to the sigmoid colon. No pneumatosis. No free gas. No new bony lesion. IMPRESSION: CHEST: 1. Mixed changes with the prior bilobed hyperenhancing lower right paratracheal mediastinal mass much smaller and less enhancing. 2. However, there are additional new mediastinal and right hilar nury metastases as well as multifocal new pulmonary parenchymal metastatic lesions. 3. The abdomen and pelvis, however, show no findings of metastatic disease. Dictated by: Dictated on workstation # [id number]
== END ==
LOC: RAD 10:41
PROVIDERS: ATTEND Internal Medicine Hematology & Oncology
DX: C80.1 Malignant (primary) neoplasm, unspecified (principal); C79.01 Secondary malignant neoplasm of right kidney and renal pelvis; C77.8 Secondary and unspecified malignant neoplasm of lymph nodes of multiple regions; C78.00 Secondary malignant neoplasm of unspecified lung
CPT/HCPCS: 36415; 71260; 74177; 80053; 84443; 85027

== ENCOUNTER 2022-09-07 12:46 | Outpatient (RCR) | payer MEDICARE, OTHER ==
[~2022-09-07 12:46] MED LIST changes: -PEMBROLIZUMAB 200 MG in NS (IVPB) 50 ML IV SCH
[2022-09-07 13:17] LABS: BASOPHILS # (AUTO) 0.1 10^3/uL (0.0-0.1); BASOPHILS % (AUTO) 1 % (0-10); EOSINOPHILS # (AUTO) 0.1 10^3/uL (0.0-0.3); EOSINOPHILS % (AUTO) 2 % (0-10); HEMATOCRIT 41 % (35-52); LYMPHOCYTES # (AUTO) 1.6 10^3/uL (1.0-4.0); LYMPHOCYTES % (AUTO) 24 % (12-44); MEAN CORPUSCULAR HEMOGLOBIN 28 pg (25-34); MEAN CORPUSCULAR HGB CONC 32 g/dL (32-36); MEAN CORPUSCULAR VOLUME 90 fL (80-99); MEAN PLATELET VOLUME 9.7 fL (9.0-12.2); MONOCYTES # (AUTO) 0.6 10^3/uL (0.0-1.0); MONOCYTES % (AUTO) 10 % (0-12); NEUTROPHILS % (AUTO) 62 % (42-75); PLATELET COUNT 280 10^3/uL (130-400); WHITE BLOOD COUNT 6.4 10^3/uL (4.3-11.0)
[2022-09-07 13:38] LABS: ALBUMIN 3.8 GM/DL (3.2-4.5); BILIRUBIN,TOTAL 0.5 MG/DL (0.1-1.0); CALCIUM 9.2 MG/DL (8.5-10.1); CREATININE SERUM 1.31 MG/DL (0.60-1.30); POTASSIUM 3.9 MMOL/L (3.6-5.0); TOTAL PROTEIN 7.7 GM/DL (6.4-8.2)
== END 2022-09-19 | disposition home or self-care (01) ==
LOC: ONC 12:46
PROVIDERS: ATTEND Internal Medicine Hematology & Oncology
DX: Z51.11 Encounter for antineoplastic chemotherapy (principal); C64.9 Malignant neoplasm of unspecified kidney, except renal pelvis; C79.51 Secondary malignant neoplasm of bone; E03.9 Hypothyroidism, unspecified; E66.9 Obesity, unspecified; G62.9 Polyneuropathy, unspecified; Z90.5 Acquired absence of kidney; Z98.890 Other specified postprocedural states; Z92.3 Personal history of irradiation
CPT/HCPCS: 36415; 80053; 85025; 96413; 99213

== ENCOUNTER 2022-10-19 13:00 | Outpatient (RCR) | payer MEDICARE, OTHER ==
[2022-10-19 13:23] LABS: BASOPHILS # (AUTO) 0.1 10^3/uL (0.0-0.1); BASOPHILS % (AUTO) 1 % (0-10); EOSINOPHILS # (AUTO) 0.1 10^3/uL (0.0-0.3); EOSINOPHILS % (AUTO) 2 % (0-10); HEMATOCRIT 42 % (35-52); HEMOGLOBIN 13.3 g/dL (11.5-16.0); LYMPHOCYTES % (AUTO) 26 % (12-44); MEAN CORPUSCULAR HEMOGLOBIN 28 pg (25-34); MEAN CORPUSCULAR HGB CONC 32 g/dL (32-36); MEAN CORPUSCULAR VOLUME 88 fL (80-99); MEAN PLATELET VOLUME 9.6 fL (9.0-12.2); MONOCYTES # (AUTO) 0.7 10^3/uL (0.0-1.0); MONOCYTES % (AUTO) 9 % (0-12); NEUTROPHILS # (AUTO) 4.6 10^3/uL (1.8-7.8); NEUTROPHILS % (AUTO) 62 % (42-75); PLATELET COUNT 266 10^3/uL (130-400); WHITE BLOOD COUNT 7.4 10^3/uL (4.3-11.0)
[2022-10-19] MEDS ORDERED: PEMBROLIZUMAB IV SCH (13:26)
[2022-10-19] MEDS ORDERED: NS IV SCH (13:26)
[2022-10-19] MEDS ORDERED: NS (IVPB) 250 ML ONE (13:36)
[2022-10-19 13:47] LABS: ALBUMIN 3.8 GM/DL (3.2-4.5); BILIRUBIN,TOTAL 0.7 MG/DL (0.1-1.0); CALCIUM 9.1 MG/DL (8.5-10.1); CREATININE SERUM 1.07 MG/DL (0.60-1.30); POTASSIUM 3.5 MMOL/L (3.6-5.0); TOTAL PROTEIN 7.3 GM/DL (6.4-8.2)
== END 2022-10-20 | disposition home or self-care (01) ==
LOC: ONC 13:00
PROVIDERS: ATTEND Internal Medicine Hematology & Oncology
DX: Z51.11 Encounter for antineoplastic chemotherapy (principal); C64.9 Malignant neoplasm of unspecified kidney, except renal pelvis; C79.51 Secondary malignant neoplasm of bone; E03.9 Hypothyroidism, unspecified; E66.9 Obesity, unspecified; G62.9 Polyneuropathy, unspecified; Z90.5 Acquired absence of kidney; Z98.890 Other specified postprocedural states; Z92.3 Personal history of irradiation
CPT/HCPCS: 80053; 84443; 85025; 96413; G0463; 36415

== ENCOUNTER 2022-12-02 12:59 | Outpatient (RCR) | payer MEDICARE, OTHER ==
[~2022-12-02 12:59] MED LIST changes: +NS IV 500 ML (CANCER CENTER) IV SCH
[2022-12-02 13:36] LABS: BASOPHILS # (AUTO) 0.1 10^3/uL (0.0-0.1); BASOPHILS % (AUTO) 1 % (0-10); EOSINOPHILS # (AUTO) 0.1 10^3/uL (0.0-0.3); EOSINOPHILS % (AUTO) 2 % (0-10); HEMATOCRIT 43 % (35-52); HEMOGLOBIN 13.6 g/dL (11.5-16.0); LYMPHOCYTES # (AUTO) 1.6 10^3/uL (1.0-4.0); LYMPHOCYTES % (AUTO) 23 % (12-44); MEAN CORPUSCULAR HEMOGLOBIN 28 pg (25-34); MEAN CORPUSCULAR HGB CONC 32 g/dL (32-36); MEAN CORPUSCULAR VOLUME 89 fL (80-99); MEAN PLATELET VOLUME 10.1 fL (9.0-12.2); MONOCYTES # (AUTO) 0.7 10^3/uL (0.0-1.0); MONOCYTES % (AUTO) 9 % (0-12); NEUTROPHILS # (AUTO) 4.6 10^3/uL (1.8-7.8); NEUTROPHILS % (AUTO) 64 % (42-75); PLATELET COUNT 269 10^3/uL (130-400); WHITE BLOOD COUNT 7.1 10^3/uL (4.3-11.0)
[2022-12-02 13:59] LABS: BILIRUBIN,TOTAL 0.5 MG/DL (0.1-1.0); CALCIUM 9.4 MG/DL (8.5-10.1); CREATININE SERUM 1.17 MG/DL (0.60-1.30); POTASSIUM 3.8 MMOL/L (3.6-5.0); TOTAL PROTEIN 7.3 GM/DL (6.4-8.2)
== END 2022-12-18 | disposition home or self-care (01) ==
LOC: ONC 12:59
PROVIDERS: ATTEND Internal Medicine Hematology & Oncology
DX: Z51.11 Encounter for antineoplastic chemotherapy (principal); C64.9 Malignant neoplasm of unspecified kidney, except renal pelvis; C79.51 Secondary malignant neoplasm of bone; E03.9 Hypothyroidism, unspecified; E66.9 Obesity, unspecified; G62.9 Polyneuropathy, unspecified; K64.9 Unspecified hemorrhoids; K59.00 Constipation, unspecified; Z90.5 Acquired absence of kidney; Z98.890 Other specified postprocedural states; Z92.3 Personal history of irradiation
CPT/HCPCS: 36415; 80053; 84443; 85025; 96413

== ENCOUNTER 2023-01-13 13:11 | Outpatient (RCR) | payer MEDICARE, OTHER ==
[2023-01-13 14:27] LABS: BASOPHILS # (AUTO) 0.1 10^3/uL (0.0-0.1); BASOPHILS % (AUTO) 1 % (0-10); EOSINOPHILS # (AUTO) 0.1 10^3/uL (0.0-0.3); EOSINOPHILS % (AUTO) 1 % (0-10); HEMATOCRIT 41 % (35-52); HEMOGLOBIN 13.2 g/dL (11.5-16.0); LYMPHOCYTES # (AUTO) 1.8 10^3/uL (1.0-4.0); LYMPHOCYTES % (AUTO) 22 % (12-44); MEAN CORPUSCULAR HEMOGLOBIN 29 pg (25-34); MEAN CORPUSCULAR HGB CONC 32 g/dL (32-36); MEAN CORPUSCULAR VOLUME 90 fL (80-99); MEAN PLATELET VOLUME 9.8 fL (9.0-12.2); MONOCYTES # (AUTO) 0.8 10^3/uL (0.0-1.0); MONOCYTES % (AUTO) 10 % (0-12); NEUTROPHILS # (AUTO) 5.4 10^3/uL (1.8-7.8); NEUTROPHILS % (AUTO) 67 % (42-75); PLATELET COUNT 258 10^3/uL (130-400); WHITE BLOOD COUNT 8.1 10^3/uL (4.3-11.0)
[2023-01-13 14:43] LABS: ALBUMIN 3.8 GM/DL (3.2-4.5); BILIRUBIN,TOTAL 0.5 MG/DL (0.1-1.0); CALCIUM 8.8 MG/DL (8.5-10.1); CREATININE SERUM 1.13 MG/DL (0.60-1.30); POTASSIUM 3.7 MMOL/L (3.6-5.0); TOTAL PROTEIN 7.1 GM/DL (6.4-8.2)
== END 2023-01-17 | disposition home or self-care (01) ==
LOC: ONC 13:11
PROVIDERS: ATTEND Internal Medicine Hematology & Oncology
DX: Z51.11 Encounter for antineoplastic chemotherapy (principal); C79.00 Secondary malignant neoplasm of unspecified kidney and renal pelvis; E03.9 Hypothyroidism, unspecified; Z98.890 Other specified postprocedural states
CPT/HCPCS: 36415; 80053; 84443; 85025; 96413

== ENCOUNTER → 2023-01-20 | Outpatient (CLI) | payer MEDICARE, OTHER ==
[~2023-01-20] MED LIST changes: -HEParin (CENTRAL IV FLUSH) 500 UNIT/5 ML SYR IV PRN; +HOLD METFORMIN - RECEIVED CONTRAST 20 ML VIAL IV SCH; +IOHEXOL 350 MG/ML 100 ML (OMNIPAQUE 350) VIAL IV ONE; -NS (IVPB) 250 ML IV SCH; +NS 100 ML (IVPB) BAG IV ONE; -NS IV 500 ML (CANCER CENTER) IV SCH; -NS IV SCH; -PEMBROLIZUMAB IV SCH
--- NOTE | 2023-01-20 15:21 | Diagnostic Imaging Report ---
Procedure: CT chest, abdomen, and pelvis with contrast. Technique: Multiple contiguous axial images were obtained through the chest, abdomen, and pelvis after the administration of intravenous contrast. Auto Exposure Controls were utilized during the CT exam to meet ALARA standards for radiation dose reduction. Date: January 20, 2023. Indication: 73-year-old female, history of metastatic renal cell carcinoma. Follow-up exam. Comparison: CT chest, abdomen and pelvis August 11, 2022. Findings: There is a 5 mm right upper lobe pulmonary nodule on axial image 42 which is increased in size since August 11, 2022. There are linear opacities in the right upper lobe on axial image 20 and adjacent sequential images likely reflecting scarring and/or atelectasis. The prior 5 mm right upper lobe on prior axial image 29 is not currently seen. There are mild linear opacities in the left lower lobe consistent with mild scarring or atelectasis. There is no additional identified focal airspace consolidation. There is no pneumothorax. There is no pleural effusion. There is no identified pulmonary embolus. The heart is not enlarged. There is no pericardial effusion. There are coronary calcifications and additional areas of atherosclerotic disease. There is a subcarinal lymph node which measures 10 mm in short axis on axial image 54. This is decreased in size since the prior CT and previously measured 2.3 cm in short axis. There is a right hilar lymph node currently measuring 1.6 cm in short axis compared to 1.8 cm in short axis previously. This is mildly decreased in size. There is significant interval decrease in size and/or resolution of additional prior right hilar and paratracheal lymph nodes since the prior CT. There is no abnormally enlarged axillary lymph node meeting CT size criteria for adenopathy. The liver is unremarkable in size and contour. There is no identified liver lesion. The main, right and left portal veins are patent. The gallbladder is unremarkable. There is no intrahepatic or extrahepatic bile duct dilation. The main pancreatic duct is not abnormally dilated. There is no identified pancreatic mass. The spleen is normal in size. The adrenal glands are unremarkable. The right kidney is absent. Unremarkable appearance of the left kidney. The left urinary collecting system is not distended. The urinary bladder wall is mildly diffusely thick which could relate to underdistention, cystitis and/or chronic outlet obstruction. The uterus is not seen and likely is surgically absent. There is mild diverticulosis without evidence of acute diverticulitis. The intestinal tract is not distended. There is no free intraperitoneal air. There is no drainable fluid collection. There is no free fluid in the abdomen or pelvis. There are atherosclerotic calcifications. There is no identified abnormally enlarged lymph node in the abdomen or pelvis which meets CT size criteria for adenopathy. There is a redemonstrated aggressive bone lesion at the level of T11. There is spinal hardware spanning T9-L1. There is a compression deformity of L1 which is present on the prior CT and is unchanged. There is no identified new bone lesion. Impression: 1. Mixed interval response to therapy with significant improvement in size and near resolution of prior right peritracheal and at least one right hilar lymph node and interval decrease in size of a subcarinal lymph node as well as lack of current visualization of a prior right upper lobe pulmonary nodule. The persistent right hilar and subcarinal lymph nodes are consistent with sites of residual metastatic nury disease with partial interval response. There is a new right upper lobe pulmonary nodule consistent with a new lung metastasis. 2. Redemonstrated bone metastasis involving T11 without spinal hardware again noted. Dictated by: Dictated on workstation # [id number]
== END ==
LOC: RAD 12:00
PROVIDERS: ATTEND Internal Medicine Hematology & Oncology
DX: C79.01 Secondary malignant neoplasm of right kidney and renal pelvis (principal); C79.51 Secondary malignant neoplasm of bone; Z90.5 Acquired absence of kidney
CPT/HCPCS: 71260; 74177

== ENCOUNTER 2023-02-24 13:10 | Outpatient (RCR) | payer MEDICARE, OTHER ==
[~2023-02-24] VITALS: Ht 153.7 cm; Wt 72.0 kg
[~2023-02-24 13:10] MED LIST changes: +HEParin (CENTRAL IV FLUSH) 500 UNIT/5 ML SYR IV PRN; -HOLD METFORMIN - RECEIVED CONTRAST 20 ML VIAL IV SCH; -IOHEXOL 350 MG/ML 100 ML (OMNIPAQUE 350) VIAL IV ONE; +NS (IVPB) 250 ML IV SCH; -NS 100 ML (IVPB) BAG IV ONE; +NS IV 500 ML (CANCER CENTER) IV SCH; +NS IV SCH; +PEMBROLIZUMAB IV SCH
[2023-02-24 13:34] LABS: BASOPHILS # (AUTO) 0.1 10^3/uL (0.0-0.1); BASOPHILS % (AUTO) 1 % (0-10); EOSINOPHILS # (AUTO) 0.2 10^3/uL (0.0-0.3); EOSINOPHILS % (AUTO) 2 % (0-10); HEMATOCRIT 40 % (35-52); HEMOGLOBIN 12.8 g/dL (11.5-16.0); LYMPHOCYTES # (AUTO) 1.6 10^3/uL (1.0-4.0); LYMPHOCYTES % (AUTO) 25 % (12-44); MEAN CORPUSCULAR HEMOGLOBIN 29 pg (25-34); MEAN CORPUSCULAR HGB CONC 32 g/dL (32-36); MEAN CORPUSCULAR VOLUME 90 fL (80-99); MEAN PLATELET VOLUME 10.2 fL (9.0-12.2); MONOCYTES # (AUTO) 0.8 10^3/uL (0.0-1.0); MONOCYTES % (AUTO) 12 % (0-12); NEUTROPHILS # (AUTO) 3.7 10^3/uL (1.8-7.8); NEUTROPHILS % (AUTO) 58 % (42-75); PLATELET COUNT 300 10^3/uL (130-400); WHITE BLOOD COUNT 6.4 10^3/uL (4.3-11.0)
[2023-02-24 13:44] LABS: ALBUMIN 3.8 GM/DL (3.2-4.5); POTASSIUM 3.6 MMOL/L (3.6-5.0)
[2023-02-24 13:45] LABS: CALCIUM 9.3 MG/DL (8.5-10.1)
[2023-02-24 13:48] LABS: BILIRUBIN,TOTAL 0.5 MG/DL (0.1-1.0)
[2023-02-24 13:50] LABS: CREATININE SERUM 1.26 MG/DL (0.60-1.30)
[2023-02-24 14:00] VITALS: BP 135/72
== END 2023-03-19 | disposition still patient (30) ==
LOC: ONC 13:10
PROVIDERS: ATTEND Internal Medicine Hematology & Oncology
DX: Z51.11 Encounter for antineoplastic chemotherapy (principal); C79.00 Secondary malignant neoplasm of unspecified kidney and renal pelvis; E03.9 Hypothyroidism, unspecified; E66.9 Obesity, unspecified; N28.9 Disorder of kidney and ureter, unspecified; G62.9 Polyneuropathy, unspecified; K64.9 Unspecified hemorrhoids; K59.00 Constipation, unspecified; Z98.890 Other specified postprocedural states; Z90.5 Acquired absence of kidney
CPT/HCPCS: 36415; 80053; 85025; 96360; 96413

== ENCOUNTER 2023-04-08 13:40 | Outpatient (RCR) | payer MEDICARE, OTHER ==
[~2023-04-08] VITALS: Ht 153.7 cm; Wt 71.2 kg
[~2023-04-08 13:40] MED LIST changes: +NS (IVPB) 250 ML 250 ML IV SCH; -NS (IVPB) 250 ML IV SCH
[2023-04-08 14:56] LABS: BASOPHILS # (AUTO) 0.1 10^3/uL (0.0-0.1); BASOPHILS % (AUTO) 1 % (0-10); EOSINOPHILS # (AUTO) 0.1 10^3/uL (0.0-0.3); EOSINOPHILS % (AUTO) 2 % (0-10); HEMATOCRIT 41 % (35-52); HEMOGLOBIN 12.9 g/dL (11.5-16.0); LYMPHOCYTES # (AUTO) 1.6 10^3/uL (1.0-4.0); LYMPHOCYTES % (AUTO) 28 % (12-44); MEAN CORPUSCULAR HEMOGLOBIN 28 pg (25-34); MEAN CORPUSCULAR HGB CONC 31 g/dL (32-36); MEAN CORPUSCULAR VOLUME 89 fL (80-99); MEAN PLATELET VOLUME 10.2 fL (9.0-12.2); MONOCYTES # (AUTO) 0.6 10^3/uL (0.0-1.0); MONOCYTES % (AUTO) 11 % (0-12); NEUTROPHILS # (AUTO) 3.4 10^3/uL (1.8-7.8); NEUTROPHILS % (AUTO) 57 % (42-75); PLATELET COUNT 258 10^3/uL (130-400); WHITE BLOOD COUNT 5.8 10^3/uL (4.3-11.0)
[2023-04-08 15:18] LABS: ALBUMIN 3.8 GM/DL (3.2-4.5); BILIRUBIN,TOTAL 0.6 MG/DL (0.1-1.0); CREATININE SERUM 1.1 MG/DL (0.60-1.30); POTASSIUM 3.5 MMOL/L (3.6-5.0); TOTAL PROTEIN 7.1 GM/DL (6.4-8.2)
== END 2023-04-19 | disposition home or self-care (01) ==
LOC: ONC 13:40
PROVIDERS: ATTEND Internal Medicine Hematology & Oncology
DX: Z51.11 Encounter for antineoplastic chemotherapy (principal); C79.00 Secondary malignant neoplasm of unspecified kidney and renal pelvis; C79.51 Secondary malignant neoplasm of bone; N28.9 Disorder of kidney and ureter, unspecified; E03.9 Hypothyroidism, unspecified; E66.9 Obesity, unspecified; G62.9 Polyneuropathy, unspecified; K64.9 Unspecified hemorrhoids; K59.00 Constipation, unspecified; Z98.890 Other specified postprocedural states; Z90.5 Acquired absence of kidney
CPT/HCPCS: 36415; 80053; 84443; 85025; 96360; 96413

== ENCOUNTER → 2023-05-20 | Outpatient (RCR) | payer MEDICARE, OTHER ==
[~2023-05-20] VITALS: Ht 153.7 cm; Wt 70.2 kg
[2023-05-20 13:58] LABS: BASOPHILS # (AUTO) 0.1 10^3/uL (0.0-0.1); BASOPHILS % (AUTO) 1 % (0-10); EOSINOPHILS # (AUTO) 0.1 10^3/uL (0.0-0.3); EOSINOPHILS % (AUTO) 2 % (0-10); HEMATOCRIT 40 % (35-52); HEMOGLOBIN 12.7 g/dL (11.5-16.0); LYMPHOCYTES # (AUTO) 1.7 10^3/uL (1.0-4.0); LYMPHOCYTES % (AUTO) 25 % (12-44); MEAN CORPUSCULAR HEMOGLOBIN 28 pg (25-34); MEAN CORPUSCULAR HGB CONC 32 g/dL (32-36); MEAN CORPUSCULAR VOLUME 90 fL (80-99); MONOCYTES # (AUTO) 0.6 10^3/uL (0.0-1.0); MONOCYTES % (AUTO) 9 % (0-12); NEUTROPHILS # (AUTO) 4.1 10^3/uL (1.8-7.8); NEUTROPHILS % (AUTO) 63 % (42-75); PLATELET COUNT 285 10^3/uL (130-400); WHITE BLOOD COUNT 6.6 10^3/uL (4.3-11.0)
[2023-05-20 14:15] LABS: ALBUMIN 3.9 GM/DL (3.2-4.5); BILIRUBIN,TOTAL 0.5 MG/DL (0.1-1.0); CREATININE SERUM 1.39 MG/DL (0.60-1.30); POTASSIUM 3.6 MMOL/L (3.6-5.0); TOTAL PROTEIN 7.2 GM/DL (6.4-8.2)
[2023-05-20 14:20] VITALS: BP 179/81
== END ==
LOC: ONC 07:45
PROVIDERS: ATTEND Internal Medicine Hematology & Oncology
DX: Z51.11 Encounter for antineoplastic chemotherapy (principal); C79.00 Secondary malignant neoplasm of unspecified kidney and renal pelvis; N28.9 Disorder of kidney and ureter, unspecified; E03.9 Hypothyroidism, unspecified; E66.9 Obesity, unspecified; G62.9 Polyneuropathy, unspecified; K64.9 Unspecified hemorrhoids; K59.00 Constipation, unspecified; Z98.890 Other specified postprocedural states; Z90.5 Acquired absence of kidney
CPT/HCPCS: 80053; 85025; 96360; 96413; G0463; 36415; 99214

== ENCOUNTER → 2023-06-28 | Outpatient (CLI) | payer MEDICARE, OTHER ==
[~2023-06-28] MED LIST changes: -HEParin (CENTRAL IV FLUSH) 500 UNIT/5 ML SYR IV PRN; +IOHEXOL 350 MG/ML 100 ML (OMNIPAQUE 350) VIAL IV ONE; -NS (IVPB) 250 ML 250 ML IV SCH; +NS 100 ML (IVPB) BAG IV ONE; -NS IV 500 ML (CANCER CENTER) IV SCH; -NS IV SCH; -PEMBROLIZUMAB IV SCH
[2023-06-28 14:07] LABS: CREATININE SERUM 1.29 MG/DL (0.60-1.30)
--- NOTE | 2023-06-28 15:07 | Diagnostic Imaging Report ---
PROCEDURE: CT chest, abdomen, and pelvis with contrast. TECHNIQUE: Multiple contiguous axial images were obtained through the chest, abdomen, and pelvis after the administration of intravenous contrast. Auto Exposure Controls were utilized during the CT exam to meet ALARA standards for radiation dose reduction. INDICATION: History of renal malignancy and right nephrectomy. On treatment. This is for followup. COMPARISON: 01/20/2023. FINDINGS: CHEST: A previous right upper lobe nodule anterior to the major fissure has resolved in the interim. No residual or recurrent lung mass. A right hilar mass has a 1 cm short axis thickness and is not appreciably changed (image 49, series 2). A right superior paratracheal mediastinal node present on the prior has since resolved. A subcarinal mediastinal node has resolved. No adverse development. The lytic lesion at T11 with multilevel spinal instrumentation is unchanged. No new suspected bony metastatic deposit. ABDOMEN/PELVIS: Some fatty infiltration of the liver is chronic. No liver mass. No biliary dilatation. The small hiatal hernia is chronic. The spleen, adrenals, and pancreas are unremarkable. The solitary unobstructed left kidney is normal. The right kidney is absent. No mass or fluid collection within the nephrectomy bed. The bilateral adrenal glands are normal. The aortoiliac and mesenteric atherosclerotic vascular calcifications are nonaneurysmal and chronic. No findings of end organ ischemia. There is noninflamed diverticulosis of the sigmoid. No abdominal/pelvic mesenteric or retroperitoneal adenopathy. The bony pelvis is intact. IMPRESSION: CHEST: Favorable change with near complete response, resolution of right lung nodule. No suspicious lung mass. A solitary residual right hilar lymph node persists. The remaining mediastinal nodes have all resolved. ABDOMEN/PELVIS: 1. No findings of soft tissue metastatic disease. Absent right kidney with unremarkable left kidney and no fluid collection. 2. Post surgical changes and lytic lesion at T11 are unchanged. No new bony pathology. Dictated by: Dictated on workstation # [id number]
== END ==
LOC: RAD 13:35
PROVIDERS: ATTEND Internal Medicine Hematology & Oncology
DX: C79.01 Secondary malignant neoplasm of right kidney and renal pelvis (principal); Z90.5 Acquired absence of kidney
CPT/HCPCS: 36415; 71260; 74177; 82565; 84520

== ENCOUNTER 2023-07-01 08:24 | Outpatient (RCR) | payer MEDICARE, OTHER ==
[2023-05-20 14:20] VITALS: BP 179/81
[~2023-07-01] VITALS: Ht 153.7 cm; Wt 70.2 kg
[~2023-07-01 08:24] MED LIST changes: +HEParin (CENTRAL IV FLUSH) 500 UNIT/5 ML SYR IV PRN; -IOHEXOL 350 MG/ML 100 ML (OMNIPAQUE 350) VIAL IV ONE; +NS (IVPB) 250 ML 250 ML IV SCH; -NS 100 ML (IVPB) BAG IV ONE; +NS IV 500 ML (CANCER CENTER) IV SCH; +NS IV SCH; +PEMBROLIZUMAB IV SCH
[2023-07-01 14:19] LABS: BASOPHILS # (AUTO) 0.1 10^3/uL (0.0-0.1); BASOPHILS % (AUTO) 2 % (0-10); EOSINOPHILS # (AUTO) 0.2 10^3/uL (0.0-0.3); EOSINOPHILS % (AUTO) 3 % (0-10); HEMATOCRIT 38 % (35-52); HEMOGLOBIN 12.1 g/dL (11.5-16.0); LYMPHOCYTES # (AUTO) 1.4 10^3/uL (1.0-4.0); LYMPHOCYTES % (AUTO) 27 % (12-44); MEAN CORPUSCULAR HEMOGLOBIN 28 pg (25-34); MEAN CORPUSCULAR HGB CONC 32 g/dL (32-36); MEAN CORPUSCULAR VOLUME 90 fL (80-99); MEAN PLATELET VOLUME 9.9 fL (9.0-12.2); MONOCYTES # (AUTO) 0.6 10^3/uL (0.0-1.0); MONOCYTES % (AUTO) 11 % (0-12); NEUTROPHILS # (AUTO) 3.1 10^3/uL (1.8-7.8); NEUTROPHILS % (AUTO) 58 % (42-75); PLATELET COUNT 319 10^3/uL (130-400); WHITE BLOOD COUNT 5.3 10^3/uL (4.3-11.0)
[2023-07-01 14:35] LABS: ALBUMIN 3.8 GM/DL (3.2-4.5); BILIRUBIN,TOTAL 0.4 MG/DL (0.1-1.0); CALCIUM 8.9 MG/DL (8.5-10.1); CREATININE SERUM 1.21 MG/DL (0.60-1.30); POTASSIUM 3.8 MMOL/L (3.6-5.0); TOTAL PROTEIN 7.4 GM/DL (6.4-8.2)
== END 2023-07-20 | disposition home or self-care (01) ==
LOC: ONC 08:24
PROVIDERS: ATTEND Internal Medicine Hematology & Oncology
DX: Z51.11 Encounter for antineoplastic chemotherapy (principal); C79.00 Secondary malignant neoplasm of unspecified kidney and renal pelvis; N28.9 Disorder of kidney and ureter, unspecified; E03.9 Hypothyroidism, unspecified; E66.9 Obesity, unspecified; G62.9 Polyneuropathy, unspecified; K64.9 Unspecified hemorrhoids; K59.00 Constipation, unspecified; Z98.890 Other specified postprocedural states; Z90.5 Acquired absence of kidney
CPT/HCPCS: 80053; 84443; 85025; 96413; G0463; 36415; 99214

== ENCOUNTER 2023-08-11 07:45 | Outpatient (RCR) | payer MEDICARE, OTHER ==
[~2023-08-11] VITALS: Ht 153.7 cm; Wt 69.1 kg
[2023-08-11] MEDS ORDERED: HEParin (CENTRAL IV FLUSH) 500 UNIT/5 ML SYR IV PRN (08:26)
[2023-08-11] MEDS ORDERED: NS IV 500 ML (CANCER CENTER) IV SCH (08:26)
[2023-08-11] MEDS ORDERED: NS IV SCH (08:26)
[2023-08-11] MEDS ORDERED: PEMBROLIZUMAB IV SCH (08:26)
[2023-08-11] MEDS ORDERED: NS (IVPB) 250 ML 250 ML IV SCH (08:26)
[2023-08-11 13:58] LABS: BASOPHILS # (AUTO) 0.1 10^3/uL (0.0-0.1); BASOPHILS % (AUTO) 1 % (0-10); EOSINOPHILS # (AUTO) 0.2 10^3/uL (0.0-0.3); EOSINOPHILS % (AUTO) 4 % (0-10); HEMATOCRIT 40 % (35-52); HEMOGLOBIN 12.3 g/dL (11.5-16.0); LYMPHOCYTES # (AUTO) 1.4 10^3/uL (1.0-4.0); LYMPHOCYTES % (AUTO) 24 % (12-44); MEAN CORPUSCULAR HEMOGLOBIN 28 pg (25-34); MEAN CORPUSCULAR HGB CONC 31 g/dL (32-36); MEAN CORPUSCULAR VOLUME 91 fL (80-99); MEAN PLATELET VOLUME 10.6 fL (9.0-12.2); MONOCYTES # (AUTO) 0.7 10^3/uL (0.0-1.0); MONOCYTES % (AUTO) 12 % (0-12); NEUTROPHILS # (AUTO) 3.4 10^3/uL (1.8-7.8); NEUTROPHILS % (AUTO) 59 % (42-75); PLATELET COUNT 252 10^3/uL (130-400); WHITE BLOOD COUNT 5.7 10^3/uL (4.3-11.0)
[2023-08-11 14:15] VITALS: BP 135/60
[2023-08-11 14:19] LABS: ALBUMIN 3.8 GM/DL (3.2-4.5); BILIRUBIN,TOTAL 0.4 MG/DL (0.1-1.0); CALCIUM 9.1 MG/DL (8.5-10.1); CREATININE SERUM 1.11 MG/DL (0.60-1.30); POTASSIUM 4.3 MMOL/L (3.6-5.0); TOTAL PROTEIN 7.1 GM/DL (6.4-8.2)
== END 2023-08-19 | disposition home or self-care (01) ==
LOC: ONC 07:45
PROVIDERS: ATTEND Internal Medicine Hematology & Oncology
DX: Z51.11 Encounter for antineoplastic chemotherapy (principal); C79.00 Secondary malignant neoplasm of unspecified kidney and renal pelvis; C79.51 Secondary malignant neoplasm of bone; N28.9 Disorder of kidney and ureter, unspecified; E03.9 Hypothyroidism, unspecified; E66.9 Obesity, unspecified; G62.9 Polyneuropathy, unspecified; K64.9 Unspecified hemorrhoids; K59.00 Constipation, unspecified; Z98.890 Other specified postprocedural states; Z90.5 Acquired absence of kidney
CPT/HCPCS: 80053; 84443; 85025; 96413; G0463; 36415; 99214